=== PATIENT | male | born 1945 | race Caucasian/White ===

== ENCOUNTER 2017-11-22 06:54 | Inpatient (IN) | payer MEDICARE ==
[~2017-11-22] VITALS: Ht 190.5 cm; Wt 100.5 kg
[~2017-11-22 06:54] MED LIST: ACET325 PO; ACETAMINOPHEN500 MG PO; ALBU90OI61 INH; ALBUIS INH; AMIO200 PO; AMOCLA875 PO; ASPI325EC PO; ASPI81CH PO; ATOR40TA PO; Albuterol2.5 MG/0.5 INH; Amiodarone HCl200 MG PO; Aspir 8181 MG PO; Aspir-Trin325 MG PO; B Complex #11 EACH PO; BENZ100A PO; Bactrim 400-801 EACH PO; CALCA500CH PO; CEFU500T30 PO; CENTRUM SILVER1 EAC2 PO; CEPH500 PO; CETI5 PO; CLOP75 PO; Caltrate-600 W1 EACH PO; Colace100 MG PO; DICL75ER PO; DILT120ER PO; DRON400T PO; ELIQUIS5 MG PO; ERGO400 PO; FISH1000 PO; FLUSAL2505 INH; FLUT1DIS8 INH; FURO20 PO; FURO40 PO; Flomax0.4 MG PO; GUAI600T33 PO; HYDR1TAB94 PO; IBUP800; Icaps Plus1 EACH PO; Isosorbide Mono30 MG PO; LAVAP17G PO; METO25 PO; MULVITMIND PO; MUPI2TC TOP; Mucinex1200 MG PO; NEBI10 PO; NEBI5 PO; NITR.4SL SL; OXYACE7.5T PO; Ocuvite Preser1 EACH PO; POTCHL10ER PO; PRAV20 PO; PRED10; PRED10 PO; Prilosec20 MG PO; SENN187 PO; SPIR25 PO; SULTRIDS PO; Super B Comple150 MG PO; TIOT18 INH; TRAZ50 PO; Vitamin D2000 UNIT PO; ZINCODVICR TOP; Zithromax250 MG PO; [UNRECOGNIZED DRUG - REMARK]
[2017-11-22 07:17] LABS: PCO2 Arterial 45.3 mmHg (35-45); PO2 Arterial 70.5 mmHg (80-100); pH Blood Arterial 7.42 (7.35-7.45)
[2017-11-22 07:28] LABS: BASOPHILS ABSOLUTE AUTO 0.02 K/mm3 (0.00-0.23); BASOPHILS PERCENT AUTO 0 % (0-2); EOSINOPHILS PERCENT AUTO 2 % (0-6); Hematocrit 38.3 % (37.0-53.0); Hemoglobin 11.8 g/dL (13.5-17.5); IMMATURE GRAN ABSOLUTE AUTO 0.05 K/mm3 (0.00-0.10); IMMATURE GRAN PERCENT AUTO 1 % (0-1); LYMPHOCYTES ABSOLUTE AUTO 1.05 K/mm3 (0.84-5.20); LYMPHOCYTES PERCENT AUTO 17 % (21-46); MONOCYTES ABSOLUTE AUTO 0.42 K/mm3 (0.16-1.47); MONOCYTES PERCENT AUTO 7 % (4-13); Mean Corpuscular HGB Conc 30.8 g/dL (31.5-36.5); Mean Corpuscular Volume 91 fL (80-100); Mean Platelet Volume 8.7 fL (9.1-12.4); NEUTROPHILS ABSOLUTE AUTO 4.73 K/mm3 (1.96-9.15); NEUTROPHILS PERCENT AUTO 74 % (41-73); Platelet Count 143 K/mm3 (150-400); RDW Coefficient Variation 15.4 % (11.7-14.2); RDW Standard Deviation 50.7 fL (35.1-46.3); Red Blood Cell Count 4.21 M/mm3 (4.30-5.90); White Blood Cell Count 6.37 K/mm3 (4.00-11.30)
[2017-11-22 07:40] LABS: International Normalized Ratio 1.03; Prothrombin Time Results 10.7 Sec (9.7-11.5)
[2017-11-22 07:47] LABS: Alanine Aminotransfer (ALT/SGP 52 U/L (12-78); Albumin/Globulin Ratio 0.9 (0.8-1.8); Alk Phos 53 U/L (50-136); Anion Gap 4 mmol/L (6-16); Aspartate Aminotrans (AST/SGOT 49 U/L (12-37); Bilirubin, Total 0.6 mg/dL (0.1-1.0); Blood Urea Nitrogen 17 mg/dL (8-24); Bun/Creatinine Ratio 14.9 (12.0-20.0); CO2, Blood 30 mmol/L (21-32); Calcium, Blood 8.3 mg/dL (8.5-10.1); Chloride, Blood 97 mmol/L (98-108); Creatinine, Blood 1.14 mg/dL (0.60-1.20); Globulin, Blood 3.4 g/dL (2.2-4.0); Glomerular Filtration Rate >60 (60-); Glucose, Blood 96 mg/dL (70-99); Potassium, Blood 4.3 mmol/L (3.5-5.5); Sodium, Blood 131 mmol/L (136-145); Total Protein, Blood 6.4 g/dL (6.4-8.2); Troponin I <0.015 ng/mL (0.000-0.040)
[2017-11-22] MEDS ORDERED: TAMS.4ER PO (07:47)
[2017-11-22] MEDS ORDERED: POTA8 PO (07:47)
[2017-11-22] MEDS ORDERED: FURO40 PO (07:49)
[2017-11-23 05:18] LABS: BASOPHILS PERCENT AUTO 0 % (0-2); EOSINOPHILS PERCENT AUTO 0 % (0-6); Hematocrit 37.5 % (37.0-53.0); Hemoglobin 11.5 g/dL (13.5-17.5); IMMATURE GRAN ABSOLUTE AUTO 0.11 K/mm3 (0.00-0.10); IMMATURE GRAN PERCENT AUTO 1 % (0-1); LYMPHOCYTES ABSOLUTE AUTO 0.58 K/mm3 (0.84-5.20); LYMPHOCYTES PERCENT AUTO 7 % (21-46); MONOCYTES ABSOLUTE AUTO 0.24 K/mm3 (0.16-1.47); MONOCYTES PERCENT AUTO 3 % (4-13); Mean Corpuscular HGB 27.5 pg (26.0-34.0); Mean Corpuscular HGB Conc 30.7 g/dL (31.5-36.5); Mean Corpuscular Volume 90 fL (80-100); Mean Platelet Volume 8.8 fL (9.1-12.4); NEUTROPHILS ABSOLUTE AUTO 7.63 K/mm3 (1.96-9.15); NEUTROPHILS PERCENT AUTO 89 % (41-73); Platelet Count 131 K/mm3 (150-400); RDW Coefficient Variation 14.8 % (11.7-14.2); RDW Standard Deviation 48.5 fL (35.1-46.3); Red Blood Cell Count 4.18 M/mm3 (4.30-5.90); White Blood Cell Count 8.56 K/mm3 (4.00-11.30)
[2017-11-23 05:51] LABS: Albumin, Blood 2.6 g/dL (3.4-5.0); Anion Gap 8 mmol/L (6-16); Blood Urea Nitrogen 18 mg/dL (8-24); Bun/Creatinine Ratio 19.7 (12.0-20.0); CO2, Blood 26 mmol/L (21-32); Calcium, Blood 7.9 mg/dL (8.5-10.1); Chloride, Blood 99 mmol/L (98-108); Creatinine, Blood 0.92 mg/dL (0.60-1.20); Glomerular Filtration Rate >60 (60-); Glucose, Blood 145 mg/dL (70-99); Phosphorus, Blood 4.1 mg/dL (2.5-4.9); Potassium, Blood 4.7 mmol/L (3.5-5.5); Sodium, Blood 133 mmol/L (136-145)
[2017-11-24 06:35] LABS: BASOPHILS ABSOLUTE AUTO 0.02 K/mm3 (0.00-0.23); BASOPHILS PERCENT AUTO 0 % (0-2); EOSINOPHILS PERCENT AUTO 0 % (0-6); Hematocrit 39.2 % (37.0-53.0); Hemoglobin 12.3 g/dL (13.5-17.5); IMMATURE GRAN ABSOLUTE AUTO 0.09 K/mm3 (0.00-0.10); IMMATURE GRAN PERCENT AUTO 1 % (0-1); LYMPHOCYTES ABSOLUTE AUTO 0.57 K/mm3 (0.84-5.20); LYMPHOCYTES PERCENT AUTO 4 % (21-46); MONOCYTES ABSOLUTE AUTO 0.36 K/mm3 (0.16-1.47); MONOCYTES PERCENT AUTO 3 % (4-13); Mean Corpuscular HGB 28.1 pg (26.0-34.0); Mean Corpuscular HGB Conc 31.4 g/dL (31.5-36.5); Mean Corpuscular Volume 90 fL (80-100); Mean Platelet Volume 8.9 fL (9.1-12.4); NEUTROPHILS ABSOLUTE AUTO 12.54 K/mm3 (1.96-9.15); NEUTROPHILS PERCENT AUTO 92 % (41-73); Platelet Count 147 K/mm3 (150-400); RDW Coefficient Variation 14.8 % (11.7-14.2); RDW Standard Deviation 48.4 fL (35.1-46.3); Red Blood Cell Count 4.37 M/mm3 (4.30-5.90); White Blood Cell Count 13.58 K/mm3 (4.00-11.30)
[2017-11-24 06:50] LABS: Anion Gap 7 mmol/L (6-16); Blood Urea Nitrogen 27 mg/dL (8-24); Bun/Creatinine Ratio 25.5 (12.0-20.0); CO2, Blood 28 mmol/L (21-32); Calcium, Blood 8.2 mg/dL (8.5-10.1); Chloride, Blood 99 mmol/L (98-108); Creatinine, Blood 1.06 mg/dL (0.60-1.20); Glomerular Filtration Rate >60 (60-); Glucose, Blood 154 mg/dL (70-99); Potassium, Blood 4.6 mmol/L (3.5-5.5); Sodium, Blood 134 mmol/L (136-145)
[2017-11-24] MEDS ORDERED: AZIT500 PO (11:03)
[2017-11-24] MEDS ORDERED: GUAI600T33 PO (11:04)
[2017-11-24] MEDS ORDERED: SACC250C PO (11:04)
[2017-11-24] MEDS ORDERED: CEFP200 PO (11:05)
[2017-11-24] MEDS ORDERED: PRED10 PO (11:06)
[2018-06-27] MEDS ORDERED: PRED10 PO (14:50)
[2018-06-30] MEDS ORDERED: AZIT250 PO (11:59)
[2018-06-30] MEDS ORDERED: CEFU500T30 PO (12:00)
== END 2017-11-24 12:10 | disposition home or self-care (01) | DRG 191 ==
LOC: ER 06:54 → MEDS 09:26 → ENPENDDIS 11-24 11:09 → MEDS 11-24 12:10
PROVIDERS: Emergency Medicine; Hospitalist
DX: J44.1 Chronic obstructive pulmonary disease with (acute) exacerbation (principal); J96.11 Chronic respiratory failure with hypoxia; E88.09 Other disorders of plasma-protein metabolism, not elsewhere classified; E87.1 Hypo-osmolality and hyponatremia; I48.0 Paroxysmal atrial fibrillation; Z99.81 Dependence on supplemental oxygen; I25.10 Atherosclerotic heart disease of native coronary artery without angina pectoris; D64.9 Anemia, unspecified; E78.5 Hyperlipidemia, unspecified; Z95.1 Presence of aortocoronary bypass graft; Z88.8 Allergy status to other drugs, medicaments and biological substances; Z87.891 Personal history of nicotine dependence; Z79.01 Long term (current) use of anticoagulants; Z79.82 Long term (current) use of aspirin; Z79.51 Long term (current) use of inhaled steroids; Z79.899 Other long term (current) drug therapy
CPT/HCPCS: 36415; 36600; 71045; 80048; 80053; 80069; 82803; 83605; 83880; 84484; 85025; 85610; 87040; 93005; 93010; 94010; 94640; 94644; 94664; 94667; 94760; 96361; 96365; 96368; 96375; 97161; 98960; 99285; G8978; G8979; G8980; J0456; J0696; J2930; J7030; J7050

== ENCOUNTER 2018-06-22 05:56 | Emergency (ER) | payer MEDICARE ==
[~2018-06-22] VITALS: Ht 190.5 cm; Wt 88.5 kg
[~2018-06-22 05:56] MED LIST changes: +AZIT500 PO; +CEFP200 PO; +POTA8 PO; +SACC250C PO; +TAMS.4ER PO
[2018-06-22 06:40] LABS: BASOPHILS ABSOLUTE AUTO 0.03 K/mm3 (0.00-0.23); BASOPHILS PERCENT AUTO 0 % (0-2); EOSINOPHILS ABSOLUTE AUTO 0.05 K/mm3 (0.00-0.68); EOSINOPHILS PERCENT AUTO 1 % (0-6); Hematocrit 37.6 % (37.0-53.0); Hemoglobin 11.6 g/dL (13.5-17.5); IMMATURE GRAN ABSOLUTE AUTO 0.08 K/mm3 (0.00-0.10); IMMATURE GRAN PERCENT AUTO 1 % (0-1); LYMPHOCYTES ABSOLUTE AUTO 1.82 K/mm3 (0.84-5.20); LYMPHOCYTES PERCENT AUTO 17 % (21-46); MONOCYTES ABSOLUTE AUTO 0.48 K/mm3 (0.16-1.47); MONOCYTES PERCENT AUTO 5 % (4-13); Mean Corpuscular HGB 27.2 pg (26.0-34.0); Mean Corpuscular HGB Conc 30.9 g/dL (31.5-36.5); Mean Corpuscular Volume 88 fL (80-100); Mean Platelet Volume 9.2 fL (9.1-12.4); NEUTROPHILS ABSOLUTE AUTO 8.11 K/mm3 (1.96-9.15); NEUTROPHILS PERCENT AUTO 77 % (41-73); Platelet Count 149 K/mm3 (150-400); RDW Coefficient Variation 15.9 % (11.7-14.2); RDW Standard Deviation 51.3 fL (35.1-46.3); Red Blood Cell Count 4.27 M/mm3 (4.30-5.90); White Blood Cell Count 10.57 K/mm3 (4.00-11.30)
[2018-06-22 06:53] LABS: Alanine Aminotransfer (ALT/SGP 32 U/L (12-78); Albumin, Blood 2.9 g/dL (3.4-5.0); Albumin/Globulin Ratio 0.8 (0.8-1.8); Alk Phos 57 U/L (50-136); Anion Gap 7 mmol/L (6-16); Aspartate Aminotrans (AST/SGOT 37 U/L (12-37); Bilirubin, Total 1.4 mg/dL (0.1-1.0); Blood Urea Nitrogen 28 mg/dL (8-24); Bun/Creatinine Ratio 18.3 (12.0-20.0); CO2, Blood 28 mmol/L (21-32); Calcium, Blood 8.4 mg/dL (8.5-10.1); Chloride, Blood 99 mmol/L (98-108); Creatinine, Blood 1.53 mg/dL (0.60-1.20); Globulin, Blood 3.8 g/dL (2.2-4.0); Glomerular Filtration Rate 47 (60-); Glucose, Blood 93 mg/dL (70-99); Potassium, Blood 4.2 mmol/L (3.5-5.5); Sodium, Blood 134 mmol/L (136-145); Total Protein, Blood 6.7 g/dL (6.4-8.2); Troponin I <0.015 ng/mL (0.000-0.040)
[2018-06-22] MEDS ORDERED: Zithromax250 MG PO (08:52)
[2018-06-22] MEDS ORDERED: Zofran Odt4 MG SL (08:53)
[2018-06-22] MEDS ORDERED: Norco 5-325 Ta1 EACH PO (08:53)
[2018-06-27] MEDS ORDERED: PRED10 PO (14:50)
== END 2018-06-22 09:55 | disposition home or self-care (01) ==
LOC: ER 05:56
PROVIDERS: Emergency Medicine
DX: K57.32 Diverticulitis of large intestine without perforation or abscess without bleeding (principal); J44.0 Chronic obstructive pulmonary disease with (acute) lower respiratory infection; J18.9 Pneumonia, unspecified organism; I50.9 Heart failure, unspecified; Z88.8 Allergy status to other drugs, medicaments and biological substances; Z88.1 Allergy status to other antibiotic agents; Z79.82 Long term (current) use of aspirin; Z79.52 Long term (current) use of systemic steroids; Z79.01 Long term (current) use of anticoagulants; Z79.51 Long term (current) use of inhaled steroids; Z87.891 Personal history of nicotine dependence
CPT/HCPCS: 71046; 74176; 80053; 83690; 84484; 85025; 93005; 93010; 96361; 96365; 96375; 99285-25; J0456; J0696; J7030; J7050

== ENCOUNTER 2019-10-11 08:00 | Inpatient (IN) | payer MEDICARE ==
[~2019-10-11] VITALS: Ht 188 cm; Wt 105.6 kg
[~2019-10-11 08:00] MED LIST changes: +AZIT250 PO; +Norco 5-325 Ta1 EACH PO; +Zofran Odt4 MG SL
[2019-10-11 08:36] LABS: BASOPHILS ABSOLUTE AUTO 0.04 K/mm3 (0.00-0.23); BASOPHILS PERCENT AUTO 1 % (0-2); EOSINOPHILS ABSOLUTE AUTO 0.09 K/mm3 (0.00-0.68); EOSINOPHILS PERCENT AUTO 1 % (0-6); Hematocrit 32.8 % (37.0-53.0); IMMATURE GRAN ABSOLUTE AUTO 0.06 K/mm3 (0.00-0.10); IMMATURE GRAN PERCENT AUTO 1 % (0-1); LYMPHOCYTES ABSOLUTE AUTO 1.34 K/mm3 (0.84-5.20); LYMPHOCYTES PERCENT AUTO 19 % (21-46); MONOCYTES PERCENT AUTO 10 % (4-13); Mean Corpuscular HGB 29.7 pg (26.0-34.0); Mean Corpuscular HGB Conc 30.5 g/dL (31.5-36.5); Mean Corpuscular Volume 97 fL (80-100); Mean Platelet Volume 8.9 fL (9.1-12.4); NEUTROPHILS PERCENT AUTO 69 % (41-73); Platelet Count 179 K/mm3 (150-400); RDW Coefficient Variation 13.7 % (11.7-14.2); RDW Standard Deviation 48.6 fL (35.1-46.3); Red Blood Cell Count 3.37 M/mm3 (4.30-5.90); White Blood Cell Count 7.13 K/mm3 (4.00-11.30)
[2019-10-11 09:02] LABS: Alanine Aminotransfer (ALT/SGP 22 U/L (12-78); Albumin, Blood 3.2 g/dL (3.4-5.0); Albumin/Globulin Ratio 0.8 (0.8-1.8); Alk Phos 68 U/L (50-136); Anion Gap 5 mmol/L (6-16); Aspartate Aminotrans (AST/SGOT 26 U/L (12-37); Bilirubin, Total 0.5 mg/dL (0.1-1.0); Blood Urea Nitrogen 32 mg/dL (8-24); Bun/Creatinine Ratio 19.5 (12.0-20.0); CO2, Blood 28 mmol/L (21-32); Calcium, Blood 8.7 mg/dL (8.5-10.1); Chloride, Blood 110 mmol/L (98-108); Creatinine, Blood 1.64 mg/dL (0.60-1.20); Globulin, Blood 3.8 g/dL (2.2-4.0); Glomerular Filtration Rate 44 (60-); Glucose, Blood 101 mg/dL (70-99); Potassium, Blood 4.7 mmol/L (3.5-5.5); Sodium, Blood 143 mmol/L (136-145); Troponin I <0.015 ng/mL (0.000-0.040)
[2019-10-11] MEDS ORDERED: Amiodarone HCl200 MG PO (11:59)
[2019-10-11] MEDS ORDERED: FLUTICASONE-SA1 EAC5 INH (11:59)
[2019-10-11] MEDS ORDERED: ATOR40TA PO (12:00)
[2019-10-11] MEDS ORDERED: ISOSORBIDE MONO30 MG PO (12:01)
--- NOTE | 2019-10-11 14:15 | NUR ---
ER ADMIT- PT ARRIVED TO ROOM 333 VIA GURNEY FROM ED AT 1335. PT A/OX4, SLIGHTLY FORGETFUL, DAUGHTERS AT BEDSIDE. PT DENIES ANY PAIN AT THIS TIME. LS RHONCHI T/O WITH MOIST OCC PRODUCTIVE COUGH WITH THICK WHITE SPUTUM, PT ON 3L N/C. PT REPORTS HE WEARS 02 AT 3L AT HS AND PRN. SOB WITH EXERTION. PT REPORTS HE IS UNABLE TO LIE FLAT. PT DENIES ANY OTHER COMPLAINTS. PT ORIENTED TO ROOM AND CALL SYSTEM, CALL LIGHT IN REACH.
--- NOTE | 2019-10-11 18:16 | NUR ---
SHIFT SUMMARY- PT A NEW ER ADMIT THIS SHIFT. PT A/OX4 BUT FORGETUL. PT INDEP UP TO THE BATHROOM. LS WITH RHONCHI T/O, PRODUCTIVE COUGH WITH THICK WHITE SPUTUM, SAMPLE SENT TO LAB. RESP PCR COMPLETED. PT ON 3L N/C WHICH HE WEARS AT NIGHT AND PRN AT HOME. PT NEEDS TO BE REMINDED TO WEAR OXYGEN WHEN GETTING UP TO THE RESTROOM. NO OTHER ACUTE CHANGES SINCE ARRIVAL TO FLOOR.
[2019-10-11 19:11] LABS: Adenovirus Not Detected (NOT DETECT); Bordetella pertussis Not Detected (NOT DETECT); Chlamydophila pneumoniae Not Detected (NOT DETECT); Coronavirus 229E Not Detected (NOT DETECT); Coronavirus HKU1 Not Detected (NOT DETECT); Coronavirus NL63 Not Detected (NOT DETECT); Coronavirus OC43 Not Detected (NOT DETECT); Human Metapneumovirus Not Detected (NOT DETECT); Human Rhinovirus/Enterovirus Not Detected (NOT DETECT); Influenza A Not Detected (NOT DETECT); Influenza A/2009-H1 Not Detected (NOT DETECT); Influenza A/H1 Not Detected (NOT DETECT); Influenza A/H3 Not Detected (NOT DETECT); Influenza B Not Detected (NOT DETECT); Mycoplasma pneumoniae Not Detected (NOT DETECT); Parainfluenza Virus 1 Not Detected (NOT DETECT); Parainfluenza Virus 2 Not Detected (NOT DETECT); Parainfluenza Virus 3 Not Detected (NOT DETECT); Parainfluenza Virus 4 Not Detected (NOT DETECT); Respiratory Syncytial Virus Not Detected (NOT DETECT)
--- NOTE | 2019-10-11 19:59 | NUR ---
SPOKE TO CASSIDY CHURCHILL REGARDING PATIENT "FEELING FULL" AFTER HIS NGT WAS CLAMPED OFF EARLIER IN THE DAY. SHE OKAYED TO PLACE THE PATIENT BACK ONTO LOW-INTERMITTENT SUCTION AND THIS CHANGE WAS MADE.
--- NOTE | 2019-10-11 21:52 | NUR ---
SPOKE TO SHIVANI CHURCHILL REGARDING PT SOUNDING WET IN THE LUNGS, COARSE EXP WHEEZES T/O; CALLED RT FOR BREATING TX WHO SAID HE SOUNDS WORSE THAN HIS PRIOR ASSESSMENT; RECVD RX FOR IV LASIX PER EMAR
--- NOTE | 2019-10-12 04:59 | NUR ---
SPOKE TO DR MENDOZA REGARDING PT ELEVATED BP 179/82, OTHERWISE ASYMPTOMATIC, NO PRN AVAILABLE. RECVD RX FOR PRN HYDRALIZINE FOR SBP<160.
[2019-10-12 05:21] LABS: BASOPHILS ABSOLUTE AUTO 0.03 K/mm3 (0.00-0.23); BASOPHILS PERCENT AUTO 0 % (0-2); EOSINOPHILS PERCENT AUTO 0 % (0-6); Hematocrit 33.1 % (37.0-53.0); Hemoglobin 10.3 g/dL (13.5-17.5); IMMATURE GRAN ABSOLUTE AUTO 0.28 K/mm3 (0.00-0.10); IMMATURE GRAN PERCENT AUTO 2 % (0-1); LYMPHOCYTES PERCENT AUTO 7 % (21-46); MONOCYTES ABSOLUTE AUTO 0.28 K/mm3 (0.16-1.47); MONOCYTES PERCENT AUTO 2 % (4-13); Mean Corpuscular HGB 29.7 pg (26.0-34.0); Mean Corpuscular HGB Conc 31.1 g/dL (31.5-36.5); Mean Corpuscular Volume 95 fL (80-100); Mean Platelet Volume 9.2 fL (9.1-12.4); NEUTROPHILS ABSOLUTE AUTO 10.09 K/mm3 (1.96-9.15); NEUTROPHILS PERCENT AUTO 88 % (41-73); Platelet Count 179 K/mm3 (150-400); RDW Coefficient Variation 13.5 % (11.7-14.2); RDW Standard Deviation 47.4 fL (35.1-46.3); Red Blood Cell Count 3.47 M/mm3 (4.30-5.90); White Blood Cell Count 11.48 K/mm3 (4.00-11.30)
[2019-10-12 05:48] LABS: Albumin/Globulin Ratio 0.7 (0.8-1.8); Bilirubin, Total 0.6 mg/dL (0.1-1.0); Bun/Creatinine Ratio 24.1 (12.0-20.0); Calcium, Blood 8.9 mg/dL (8.5-10.1); Creatinine, Blood 1.37 mg/dL (0.60-1.20); Globulin, Blood 4.2 g/dL (2.2-4.0); Potassium, Blood 4.6 mmol/L (3.5-5.5); Total Protein, Blood 7.2 g/dL (6.4-8.2)
--- NOTE | 2019-10-12 06:34 | NUR ---
PT SLEPT INTERMITTENTLY THROUGH THE NIGHT. PT WAS SEEN BY RT AND HIS COUGH AND LUNG SOUNDS WERE GROWING WETTER. STOPPED IVF FOR A WHILE AND PT RECEIVED BREATHING TX. PT HAD SOME ELEVEATE BP THIS MORNING AND RECEIVED IV HYDRALIZINE PER EMAR. HE REMAINS PLEASANT AND COOPERATIVE WITH CARE. HE MAY BENEFIT FROM A COUGH SYRUP AND/OR TESSALON PERRLE FOR PERIODS OF REST; HIS COUGH EXHAUSTS HIM.
--- NOTE | 2019-10-12 12:46 | NUR ---
DR BOLTON IN TO SEE PT.
--- NOTE | 2019-10-12 16:11 | NUR ---
ECHO IN PROGRESS.
--- NOTE | 2019-10-12 16:46 | NUR ---
ECHOCARDIOGRAM COMPLETE
--- NOTE | 2019-10-12 16:57 | NUR ---
SHIFT SUMMARY- PT A/OX4. PT DENIES ANY PAIN T/O THE DAY. PT INDEP UP TO BATHROOM. PT WAS ABLE TO AMBULATE SHORT DISTANCES IN THE HALLWAY TODAY. LS COARSE WITH EXP WHEEZES, PT DID SAT 96% ON RA BUT HAS BEEN WEARING 02 AT 2L, TITRATED DOWN FROM 3L. PT WEARS 02 AT HS AT HOME AND PRN. HARSH MOIST PRODUCTIVE COUGH OF THICK WHITE SPUTUM. SOB WITH EXERTION. BREATHING TX NOW SCHEDULED Q4H. NO OTHER ACUTE CHANGES THIS SHIFT.
--- NOTE | 2019-10-12 23:07 | NUR ---
SPOKE TO SHIVANI CHURCHILL PLANNER/SCHEDULER REGARDING PT COUGHING AND HACKING EPISODES. NO NEW ORDERS AT THIS TIME. WILL CONTINUWE TO MONITOR
--- NOTE | 2019-10-13 08:00 | NUR ---
PT PLEASANT TALKATIVE. A/O. [place]. DENIES PAIN. H/R REG, NO MURMER NOTED. OLD SCAR MIDLINE CHEST. PRIOR CABG. NO TELE. LUNGS COARSE T/O. ON 2L O2. PT STATES NO DAY USE AT HOME. RESP EASY UNLABORED EXCEPT WHEN COUGHING. PT STATES ONLY A LITTLE SPUTUM PRODUCED. BT X4 LAST BM YEST PER PT. VOIDS BATHROOM. INDEPENDANT IN ROOM. BED IN LOW POSITION, CALL LITE IN REACH, CALLS APPROP
--- NOTE | 2019-10-13 11:45 | NUR ---
PT UP WALKING HALLS. DENIES SOB.
--- NOTE | 2019-10-13 17:39 | NUR ---
PT QUITE PLEASANT TODAY. SON AND OTHER FAMILY IN TODAY. HAS BEEN UP IN HALLS TODAY WALKING. COUGHING LESS. TALKING MUCH. NO OTHER CONCERNS AT THIS TIME. BED IN LOW POSITION,C A LL LITE IN REACH, CALLS APROP
[2019-10-14 05:05] LABS: BASOPHILS ABSOLUTE AUTO 0.03 K/mm3 (0.00-0.23); BASOPHILS PERCENT AUTO 0 % (0-2); EOSINOPHILS PERCENT AUTO 0 % (0-6); Hematocrit 31.6 % (37.0-53.0); Hemoglobin 9.8 g/dL (13.5-17.5); IMMATURE GRAN ABSOLUTE AUTO 0.44 K/mm3 (0.00-0.10); IMMATURE GRAN PERCENT AUTO 3 % (0-1); LYMPHOCYTES ABSOLUTE AUTO 0.59 K/mm3 (0.84-5.20); LYMPHOCYTES PERCENT AUTO 4 % (21-46); MONOCYTES ABSOLUTE AUTO 0.34 K/mm3 (0.16-1.47); MONOCYTES PERCENT AUTO 2 % (4-13); Mean Corpuscular HGB 29.6 pg (26.0-34.0); Mean Corpuscular Volume 96 fL (80-100); Mean Platelet Volume 9.2 fL (9.1-12.4); NEUTROPHILS ABSOLUTE AUTO 14.49 K/mm3 (1.96-9.15); NEUTROPHILS PERCENT AUTO 91 % (41-73); Platelet Count 208 K/mm3 (150-400); RDW Coefficient Variation 13.7 % (11.7-14.2); RDW Standard Deviation 47.8 fL (35.1-46.3); Red Blood Cell Count 3.31 M/mm3 (4.30-5.90); White Blood Cell Count 15.89 K/mm3 (4.00-11.30)
[2019-10-14 05:28] LABS: Bun/Creatinine Ratio 27.5 (12.0-20.0); Calcium, Blood 8.5 mg/dL (8.5-10.1); Creatinine, Blood 1.78 mg/dL (0.60-1.20)
--- NOTE | 2019-10-14 05:48 | NUR ---
SHIFT SUMMARY PT HAS NO NEW ISSUES NOTED. PT HAS BEEN SLEEPING OFF AND ON. PT CONTINUES TO HAVE A WET COUGH NOTED. PT HAS BEEN WALKING AROUND UNIT WITH OUT ISSUE. PT CURRENTLY AWAKE AND IN NO DISTRESS. CALL LIGHT IN REACH.
--- NOTE | 2019-10-14 16:47 | NUR ---
PT AOX4 AND COOPERATIVE OF CARE. PT HAS BEEN UP INDEPENDENTLY AND EVEN WENT FOR A WALK DOWN THE CIFUENTES. PT HAS COURSE LS THROUGHOUT. PT HAD HIS COUGH INCREASE AND THIS WAS TREATED PER EMAR. COUGH HAS IMPROVED PER PT. PT RESTING IN BED AT THIS TIME CALLS APPROPRIATELY. NO DISTRESS NOTED WILL CONTINUE TO MONITOR.
[2019-10-15 05:18] LABS: BASOPHILS ABSOLUTE AUTO 0.05 K/mm3 (0.00-0.23); BASOPHILS PERCENT AUTO 0 % (0-2); EOSINOPHILS PERCENT AUTO 0 % (0-6); Hematocrit 32.7 % (37.0-53.0); Hemoglobin 10.2 g/dL (13.5-17.5); IMMATURE GRAN ABSOLUTE AUTO 0.61 K/mm3 (0.00-0.10); IMMATURE GRAN PERCENT AUTO 4 % (0-1); LYMPHOCYTES ABSOLUTE AUTO 0.57 K/mm3 (0.84-5.20); LYMPHOCYTES PERCENT AUTO 4 % (21-46); MONOCYTES ABSOLUTE AUTO 0.45 K/mm3 (0.16-1.47); MONOCYTES PERCENT AUTO 3 % (4-13); Mean Corpuscular HGB 29.7 pg (26.0-34.0); Mean Corpuscular HGB Conc 31.2 g/dL (31.5-36.5); Mean Corpuscular Volume 95 fL (80-100); Mean Platelet Volume 9.2 fL (9.1-12.4); NEUTROPHILS ABSOLUTE AUTO 14.13 K/mm3 (1.96-9.15); NEUTROPHILS PERCENT AUTO 89 % (41-73); Platelet Count 230 K/mm3 (150-400); RDW Coefficient Variation 13.7 % (11.7-14.2); RDW Standard Deviation 47.3 fL (35.1-46.3); Red Blood Cell Count 3.44 M/mm3 (4.30-5.90); White Blood Cell Count 15.81 K/mm3 (4.00-11.30)
[2019-10-15 05:36] LABS: Bun/Creatinine Ratio 29.2 (12.0-20.0); Calcium, Blood 8.5 mg/dL (8.5-10.1); Creatinine, Blood 1.85 mg/dL (0.60-1.20); Potassium, Blood 4.9 mmol/L (3.5-5.5)
--- NOTE | 2019-10-15 07:29 | NUR ---
SHIFT SUMMARY NO NEW ISSUES NOTED PT SLEPT WELL T/O SHIFT. PT WOKE UP EARLY AND REQUESTED COFFEE. PT AWAKE WITH CALL LIGHT IN REACH.
--- NOTE | 2019-10-15 17:06 | NUR ---
PT AOX4 AND COOPERATIVE OF CARE. LSC THROUGHOUT PT CONTINUES ON 2L OF O2. PT UP IN ROOM INDEPENDENTLY. PT HAS AMBULATED X2 DOWN THE CIFUENTES AND BACK ON ROOM AIR. RT CHECKED O2 LEVEL WHILE PT DID THIS AND IT GETS DOWN TO 81%. PT DENIES PAIN AT THIS TIME.COUGH TREATED X1 PER EMAR. WILL CONTINUE TO MONITOR.
--- NOTE | 2019-10-16 05:04 | NUR ---
SHIFT SUMMARY PT HAD SOME HTN NOTED. PT CONTINUES TO COUGH. PT RESPONDS WELL TO COUGH MEDS AND SLEPT WELL. PT WALKED UNIT WITH OUT ISSUE. PT CURRENTLY AWAKE IN NO DISTRESS. CALL LIGHT IN REACH.
[2019-10-16 05:36] LABS: BASOPHILS ABSOLUTE AUTO 0.05 K/mm3 (0.00-0.23); BASOPHILS PERCENT AUTO 0 % (0-2); EOSINOPHILS PERCENT AUTO 0 % (0-6); Hematocrit 31.9 % (37.0-53.0); Hemoglobin 10.1 g/dL (13.5-17.5); IMMATURE GRAN PERCENT AUTO 4 % (0-1); LYMPHOCYTES ABSOLUTE AUTO 0.54 K/mm3 (0.84-5.20); LYMPHOCYTES PERCENT AUTO 4 % (21-46); MONOCYTES ABSOLUTE AUTO 0.42 K/mm3 (0.16-1.47); MONOCYTES PERCENT AUTO 3 % (4-13); Mean Corpuscular HGB 29.8 pg (26.0-34.0); Mean Corpuscular HGB Conc 31.7 g/dL (31.5-36.5); Mean Corpuscular Volume 94 fL (80-100); NEUTROPHILS ABSOLUTE AUTO 13.49 K/mm3 (1.96-9.15); NEUTROPHILS PERCENT AUTO 89 % (41-73); Platelet Count 204 K/mm3 (150-400); RDW Coefficient Variation 13.6 % (11.7-14.2); RDW Standard Deviation 46.8 fL (35.1-46.3); Red Blood Cell Count 3.39 M/mm3 (4.30-5.90)
[2019-10-16 06:04] LABS: Bun/Creatinine Ratio 34.4 (12.0-20.0); Calcium, Blood 8.5 mg/dL (8.5-10.1); Creatinine, Blood 1.51 mg/dL (0.60-1.20); Potassium, Blood 5.2 mmol/L (3.5-5.5)
--- NOTE | 2019-10-16 17:11 | NUR ---
Inital spiritual care note: Mr. Gagnon is quite charming and denies fears/concerns. He feels supported and loved by his 3 adult children. He made little jokes and was engaged/personable. Denied needs and is non-congregation. He feels like he is getting better. Provided encouragement. I will remain available.
--- NOTE | 2019-10-16 17:32 | NUR ---
PT AOX4 AND COOPERATIVE OF CARE. PT CONTINUES TO DO WELL AND HAS BEEN DOWN THE CIFUENTES AMBULATING X3 TODAY. PT STATES HE IS FEELING BETTER, BUT STILL NOT QUITE TO HIS BASELINE PER PT. NO DISTESS AT THIS TIME COUGH TREATED PER EMAR NO PAIN REPORTED.
--- NOTE | 2019-10-17 00:21 | NUR ---
UP AMBULATING POST HS, TOLERATED MEDS WELL. ALERT AND ORIENTED. CALL LIGHT IN REACH. VOICED HE INTENDED TO "GET SOME SLEEP". WILL CONTINUE TO MONITOR.
[2019-10-17 06:11] LABS: Calcium, Blood 8.5 mg/dL (8.5-10.1); Creatinine, Blood 1.5 mg/dL (0.60-1.20); Potassium, Blood 5.4 mmol/L (3.5-5.5)
--- NOTE | 2019-10-17 14:15 | NUR ---
PT gave permission to give care on 10/17/2019 at 1410. At first PT bryant said "No". Then PT laughed saying, "Yes, of course you can".
--- NOTE | 2019-10-17 15:32 | NUR ---
SUMMARY PT IS A/O X4, PLEASANT AFFECT. HE HAS BEEN UP IND AMBULATING TO BR & IN HALLWAY, GAIT STEADY. HE STATE SOB w EXERTION IMPROVING. DX PNEUM. IV ANTIBX CONTINUE. LS ARE COARSE w EXP WHEEZES. O2 @ 2L, BIOX 99%, TITRATED TO ROOM AIR DURING DAYTIME. DR REGALADO IN TO SEE HIM THIS AM STATE NOT READY TO GO HOME @ THIS TIME, WILL REASSESS TOMORROW. VSS.
[2019-10-18 05:47] LABS: BASOPHILS ABSOLUTE AUTO 0.05 K/mm3 (0.00-0.23); BASOPHILS PERCENT AUTO 0 % (0-2); EOSINOPHILS PERCENT AUTO 0 % (0-6); Hematocrit 30.2 % (37.0-53.0); Hemoglobin 9.5 g/dL (13.5-17.5); IMMATURE GRAN ABSOLUTE AUTO 0.78 K/mm3 (0.00-0.10); IMMATURE GRAN PERCENT AUTO 5 % (0-1); LYMPHOCYTES ABSOLUTE AUTO 0.71 K/mm3 (0.84-5.20); LYMPHOCYTES PERCENT AUTO 5 % (21-46); MONOCYTES ABSOLUTE AUTO 0.69 K/mm3 (0.16-1.47); MONOCYTES PERCENT AUTO 4 % (4-13); Mean Corpuscular HGB 29.5 pg (26.0-34.0); Mean Corpuscular HGB Conc 31.5 g/dL (31.5-36.5); Mean Corpuscular Volume 94 fL (80-100); Mean Platelet Volume 9.2 fL (9.1-12.4); NEUTROPHILS ABSOLUTE AUTO 13.38 K/mm3 (1.96-9.15); NEUTROPHILS PERCENT AUTO 86 % (41-73); NRBC ABSOLUTE 0.02 K/mm3 (0.00-0.02); NRBC Auto 0.1 /100 WBC (0.0-0.2); Platelet Count 212 K/mm3 (150-400); RDW Coefficient Variation 13.7 % (11.7-14.2); RDW Standard Deviation 46.5 fL (35.1-46.3); Red Blood Cell Count 3.22 M/mm3 (4.30-5.90); White Blood Cell Count 15.61 K/mm3 (4.00-11.30)
[2019-10-18 06:05] LABS: Calcium, Blood 8.3 mg/dL (8.5-10.1); Creatinine, Blood 1.56 mg/dL (0.60-1.20); Potassium, Blood 5.6 mmol/L (3.5-5.5)
--- NOTE | 2019-10-18 16:33 | NUR ---
SHIFT SUMMARY PT DENIES PAIN THROUGHOUT SHIFT. PT IND IN ROOM. AMBULATED HALLWAYS PERIODICALLY. NO CHANGES IN ASSESSMENT AT THIS TIME. VSS. WILL CONTINUE TO MONITOR UNTIL TURNOVER IS COMPLETE.
--- NOTE | 2019-10-18 22:50 | NUR ---
10/18/19 2250 RESP.CARE AND STARTING SLEEP STUDY. RT INFORMED PT ON REQUIREMENTS FOR STUDY. 02 AT 2LPM VIA N/C.
[2019-10-19 05:18] LABS: PCO2 Arterial 44 mmHg (35-45); PO2 Arterial 88.5 mmHg (80-100); pH Blood Arterial 7.43 (7.35-7.45)
--- NOTE | 2019-10-19 05:18 | NUR ---
10/19/19 0515 RESP. CARE AWAKENED PT TO DISCONNECT MONITOR FOR SLEEP STUDY. PT HUNGRY AND WANTING COFFE AND CRACKERS. NO OTHER COMPLAINTS. SLEPT ON AND OFF THIS SHIFT. VITALS STABLE.
[2019-10-19 05:51] LABS: Hematocrit 32.7 % (37.0-53.0); Hemoglobin 10.3 g/dL (13.5-17.5); Mean Corpuscular HGB 29.7 pg (26.0-34.0); Mean Corpuscular HGB Conc 31.5 g/dL (31.5-36.5); Mean Corpuscular Volume 94 fL (80-100); Mean Platelet Volume 9.1 fL (9.1-12.4); Platelet Count 218 K/mm3 (150-400); RDW Coefficient Variation 13.9 % (11.7-14.2); RDW Standard Deviation 47.2 fL (35.1-46.3); Red Blood Cell Count 3.47 M/mm3 (4.30-5.90); White Blood Cell Count 16.13 K/mm3 (4.00-11.30)
[2019-10-19 06:09] LABS: Bun/Creatinine Ratio 30.9 (12.0-20.0); Calcium, Blood 8.5 mg/dL (8.5-10.1); Creatinine, Blood 1.75 mg/dL (0.60-1.20); Potassium, Blood 5.5 mmol/L (3.5-5.5)
[2019-10-19 06:25] LABS: BAND PERCENT MAN 3 % (0-8); BASOPHILS PERCENT MAN 0 % (0-2); EOSINOPHILS PERCENT MAN 0 % (0-6); LYMPHOCYTES ABSOLUTE MAN 1.29 K/mm3 (0.84-5.20); LYMPHOCYTES PERCENT MAN 8 % (21-46); METAMYELOCYTE ABSOLUTE MAN 0.16 K/mm3 (0.00-0.00); METAMYELOCYTE PERCENT MAN 1 % (0-0); MONOCYTES ABSOLUTE MAN 0.48 K/mm3 (0.16-1.47); MONOCYTES PERCENT MAN 3 % (4-13); MYELOCYTE ABSOLUTE MAN 0.16 K/mm3 (0.00-0.00); MYELOCYTE PERCENT MAN 1 % (0-0); NEUTROPHILS ABSOLUTE MAN 14.03 K/mm3 (1.96-9.15); SEG NEUTROPHILS PERCENT MAN 84 % (41-73); TOTAL CELLS COUNTED 100
--- NOTE | 2019-10-19 07:42 | NUR ---
ASSUMED CARE OF PT- BEDSIDE REPORT COMPLETED WITH NIHGT RN JOSE. PT ALERT AND ORIENTED A LITTLE HARD OF HEARING. PT HAS REQUESTED THAT STAFF BE SURE TO WAKE HIM BEFORE TOUCHING HIM. HE STATED HE HAS AN EXAGERATED STARTLE RESPONSE, AND HE IS FEARFUL THAT HE MAY HIT SOMEONE WHEN THEY WAKE HIM. NOTE PLACED OUTSIDE THE PT ROOM. PER REPORT POSSIBLE DISCHARGE TODAY.
--- NOTE | 2019-10-19 20:10 | NUR ---
SHIFT SUMMARY- PT ALERT AND ORIENTED. PER DR FAUST PT TO DISCHARGE TOMORROW. PT HAS HAD NO C/O PAIN. PT ON 2L VIA NC AT NIGHT. PT HAS BEEN INDEPENDENT IN THE HALLS TODAY WITHOUT O2. PT HAS A HOME O2 CONCENTRATOR FOR NIGHT TIME O2. PT AWARE OF THE PLANS FOR DISCHARGE TOMORROW.
[2019-10-20 05:32] LABS: BASOPHILS ABSOLUTE AUTO 0.07 K/mm3 (0.00-0.23); BASOPHILS PERCENT AUTO 1 % (0-2); EOSINOPHILS PERCENT AUTO 0 % (0-6); Hematocrit 30.7 % (37.0-53.0); Hemoglobin 9.9 g/dL (13.5-17.5); IMMATURE GRAN ABSOLUTE AUTO 0.83 K/mm3 (0.00-0.10); IMMATURE GRAN PERCENT AUTO 6 % (0-1); LYMPHOCYTES ABSOLUTE AUTO 0.48 K/mm3 (0.84-5.20); LYMPHOCYTES PERCENT AUTO 3 % (21-46); MONOCYTES ABSOLUTE AUTO 0.53 K/mm3 (0.16-1.47); MONOCYTES PERCENT AUTO 4 % (4-13); Mean Corpuscular HGB Conc 32.2 g/dL (31.5-36.5); Mean Corpuscular Volume 93 fL (80-100); Mean Platelet Volume 9.1 fL (9.1-12.4); NEUTROPHILS PERCENT AUTO 86 % (41-73); NRBC ABSOLUTE 0.02 K/mm3 (0.00-0.02); NRBC Auto 0.1 /100 WBC (0.0-0.2); Platelet Count 213 K/mm3 (150-400); White Blood Cell Count 14.11 K/mm3 (4.00-11.30)
[2019-10-20 05:56] LABS: Albumin, Blood 2.6 g/dL (3.4-5.0); Albumin/Globulin Ratio 0.9 (0.8-1.8); Bilirubin, Total 0.5 mg/dL (0.1-1.0); Bun/Creatinine Ratio 33.1 (12.0-20.0); Calcium, Blood 8.3 mg/dL (8.5-10.1); Creatinine, Blood 1.72 mg/dL (0.60-1.20); Globulin, Blood 2.9 g/dL (2.2-4.0); Magnesium, Blood 2.1 mg/dL (1.6-2.4); Phosphorus, Blood 4.3 mg/dL (2.5-4.9); Potassium, Blood 5.4 mmol/L (3.5-5.5); Total Protein, Blood 5.5 g/dL (6.4-8.2)
--- NOTE | 2019-10-20 07:26 | NUR ---
ASSUMED CARE OF PT- BEDSIDE REPORT COMPLETED WITH NIGHT RN JOSE. PER REPORT PT WAS INDEPENDENT THROUGH THE NIGHT. PT ALERT AND ORIENTED AND IS HOPING TO GO HOME TODAY. PLAN IS FOR PT TO DISCHARGE HOME TODAY PER DR MARTI. PT HAS NO S&S OF DISTRESS OR PAIN AT THIS TIME WILL CTM.
--- NOTE | 2019-10-20 07:30 | NUR ---
10/20/19 0600 CHEERFUL THIS SHIFT WITHOUT COMPLAINTS. 02 AT 2LPM VIA N/C. VITALS STABLE. UNEVENTFUL NIGHT.
[2019-10-20] MEDS ORDERED: GUAI600T33 PO (11:49)
[2019-10-20] MEDS ORDERED: FAMO20 PO (11:49)
[2019-10-20] MEDS ORDERED: Duoneb 2.5-0.5 M3 ML INH (11:50)
[2019-10-20] MEDS ORDERED: Prednisone10 MG PO (11:51)
[2019-10-20] MEDS ORDERED: SENN187 PO (11:51)
--- NOTE | 2019-10-20 13:34 | NUR ---
DISCHARGE NOTE- PT WAS GIVEN VERBAL AND WRITTEN DISCHARGE INSTRUCTIONS AND ACKNOWLEDGED UNDERSTANDING OF THEM. PT IV WAS DC'D PRIOR TO DISCHARGE. PT AND FAMILY HAD NO FURTHER QUESTIONS AT THE TIME OF DISCHARGE, CONTACT INFO PROVIDED IN THE EVENT THAT QUESTIONS SHOULD ARRISE. PT WAS ESCORTED OUT VIA WC BY THE MORTGAGE LOAN INTERVIEWER.
== END 2019-10-20 12:22 | disposition home or self-care (01) | DRG 189 ==
LOC: ER 08:00 → MEDS 11:56
PROVIDERS: Family Medicine; Hospitalist; Internal Medicine Endocrinology, Diabetes & Metabolism; Physician Assistant; ADMIT Internal Medicine
DX: J96.21 Acute and chronic respiratory failure with hypoxia (principal); J44.1 Chronic obstructive pulmonary disease with (acute) exacerbation; J44.0 Chronic obstructive pulmonary disease with (acute) lower respiratory infection; E78.5 Hyperlipidemia, unspecified; E86.0 Dehydration; E87.5 Hyperkalemia; G25.2 Other specified forms of tremor; I10 Essential (primary) hypertension; I25.10 Atherosclerotic heart disease of native coronary artery without angina pectoris; I48.0 Paroxysmal atrial fibrillation; K21.9 Gastro-esophageal reflux disease without esophagitis; N18.3 Chronic kidney disease, stage 3 (moderate); N40.0 Benign prostatic hyperplasia without lower urinary tract symptoms; Z95.1 Presence of aortocoronary bypass graft; J20.8 Acute bronchitis due to other specified organisms; Z99.81 Dependence on supplemental oxygen; Z91.19 Patient's noncompliance with other medical treatment and regimen; Z79.01 Long term (current) use of anticoagulants; I12.9 Hypertensive chronic kidney disease with stage 1 through stage 4 chronic kidney disease, or unspecified chronic kidney disease; E87.6 Hypokalemia; D63.1 Anemia in chronic kidney disease
CPT/HCPCS: 0099U; 36415; 36600; 71045; 71046; 80048; 80053; 82803; 83735; 83880; 84100; 84484; 85025; 87070; 87077; 87185; 87205; 90670; 93005; 93010; 93306; 94640; 94664; 94667; 94760; 94762; 96374; 98960; 99285-25; J0360; J0456; J0696; J1940; J2920; J2930; J7030; J7050; J7512

== ENCOUNTER 2020-06-06 11:35 | Observation (INO) | payer MEDICARE ==
[~2020-06-06] VITALS: Ht 188 cm; Wt 109.9 kg
[~2020-06-06 11:35] MED LIST changes: -ELIQUIS5 MG PO; +FAMO20 PO; -METO25 PO; -POTA8 PO; +Prednisone10 MG PO; -TAMS.4ER PO
[2020-06-06 13:03] LABS: BASOPHILS ABSOLUTE AUTO 0.05 K/mm3 (0.00-0.23); BASOPHILS PERCENT AUTO 1 % (0-2); EOSINOPHILS ABSOLUTE AUTO 0.33 K/mm3 (0.00-0.68); EOSINOPHILS PERCENT AUTO 6 % (0-6); Hematocrit 34.5 % (37.0-53.0); IMMATURE GRAN ABSOLUTE AUTO 0.03 K/mm3 (0.00-0.10); IMMATURE GRAN PERCENT AUTO 1 % (0-1); LYMPHOCYTES ABSOLUTE AUTO 1.77 K/mm3 (0.84-5.20); LYMPHOCYTES PERCENT AUTO 31 % (21-46); MONOCYTES ABSOLUTE AUTO 0.36 K/mm3 (0.16-1.47); MONOCYTES PERCENT AUTO 6 % (4-13); Mean Corpuscular HGB 25.9 pg (26.0-34.0); Mean Corpuscular Volume 89 fL (80-100); Mean Platelet Volume 9.7 fL (9.1-12.4); NEUTROPHILS ABSOLUTE AUTO 3.27 K/mm3 (1.96-9.15); NEUTROPHILS PERCENT AUTO 56 % (41-73); Platelet Count 172 K/mm3 (150-400); RDW Coefficient Variation 17.3 % (11.7-14.2); Red Blood Cell Count 3.86 M/mm3 (4.30-5.90); White Blood Cell Count 5.81 K/mm3 (4.00-11.30)
[2020-06-06 13:25] LABS: Albumin, Blood 3.2 g/dL (3.4-5.0); Bun/Creatinine Ratio 14.8 (12.0-20.0); Calcium, Blood 8.7 mg/dL (8.5-10.1); Creatinine, Blood 1.89 mg/dL (0.60-1.20); Globulin, Blood 3.3 g/dL (2.2-4.0); Potassium, Blood 4.6 mmol/L (3.5-5.5); Total Protein, Blood 6.5 g/dL (6.4-8.2)
[2020-06-06 15:58] LABS: Troponin I 0.092 ng/mL (0.000-0.040)
[2020-06-06] MEDS ORDERED: FLUTICASONE-SA1 EA10 INH (16:50)
[2020-06-06] MEDS ORDERED: ATOR40TA PO (16:51)
[2020-06-06] MEDS ORDERED: Tessalon200 MG PO (16:52)
[2020-06-06] MEDS ORDERED: METO25 PO (16:53)
[2020-06-06] MEDS ORDERED: FURO40 PO (16:53)
[2020-06-06] MEDS ORDERED: TAMS.4ER PO (16:54)
[2020-06-06] MEDS ORDERED: POTA8 PO (16:54)
[2020-06-06] MEDS ORDERED: PACERONE100 M1 PO (16:54)
[2020-06-06] MEDS ORDERED: ISOSORBIDE MONO30 MG PO (16:54)
[2020-06-06] MEDS ORDERED: ALBU2.5V5 NEB (16:55)
[2020-06-06] MEDS ORDERED: ELIQUIS5 MG PO (16:55)
[2020-06-06 17:35] LABS: International Normalized Ratio 0.99; Prothrombin Time Results 10.6 Sec (9.7-11.5)
[2020-06-06] MEDS ORDERED: [UNRECOGNIZED DRUG - REMARK] PO (17:51)
[2020-06-06] MEDS ORDERED: [UNRECOGNIZED DRUG - OTHER] PO (17:51)
[2020-06-06 21:34] LABS: Troponin I 0.132 ng/mL (0.000-0.040)
--- NOTE | 2020-06-06 23:07 | NUR ---
2039 PT ADMITTED TO PCU 8 PER CART FROM ER; REPORT RECEIVED FROM DESTIN DOLL; PT ALERT AND ORIENTED X 4; PTS SON AT SIDE AND ALL PERSONAL VALUABLES SENT HOME WITH EDER; PT VOICED HE HAD TWO FALLS PAST TWO DAYS; PT NOTED HAVE BILATERAL VERY LONG TOE NAILS; PTS VOICED NO SHOWER IN OVER TWO WEEKS WITH DRY SCALLY SKIN NOTED ENTIRE BODY; TELEMETRY REFLECTS SINUS BRADYCARDIA PER YORDY--[employer].
--- NOTE | 2020-06-07 03:35 | NUR ---
SHIFT SUMMARY: 74 Y/O OBESE MALE RESTED COMFORTABLY IN BED; DENIES CHEST PAIN OR NAUSEA; HEPARIN INFUSING WITHOUTISSUE; NO ACTIVE BLEEDING NOTED; TELEMETRY REFLECTS SINUS BRADYCARDIA; PTS LAST PTT WAS 82 WITH NEXT BLOOD DRAW SCHEDULED FOR 0800 TODAY; BED LOW POSITION WITH CALL LIGHT AT SIDE.
[2020-06-07 04:20] LABS: BASOPHILS ABSOLUTE AUTO 0.05 K/mm3 (0.00-0.23); BASOPHILS PERCENT AUTO 1 % (0-2); EOSINOPHILS PERCENT AUTO 7 % (0-6); Hematocrit 34.9 % (37.0-53.0); Hemoglobin 10.3 g/dL (13.5-17.5); IMMATURE GRAN ABSOLUTE AUTO 0.02 K/mm3 (0.00-0.10); IMMATURE GRAN PERCENT AUTO 0 % (0-1); LYMPHOCYTES ABSOLUTE AUTO 1.47 K/mm3 (0.84-5.20); LYMPHOCYTES PERCENT AUTO 32 % (21-46); MONOCYTES ABSOLUTE AUTO 0.32 K/mm3 (0.16-1.47); MONOCYTES PERCENT AUTO 7 % (4-13); Mean Corpuscular HGB Conc 29.5 g/dL (31.5-36.5); Mean Corpuscular Volume 88 fL (80-100); Mean Platelet Volume 9.3 fL (9.1-12.4); NEUTROPHILS ABSOLUTE AUTO 2.44 K/mm3 (1.96-9.15); NEUTROPHILS PERCENT AUTO 53 % (41-73); Platelet Count 157 K/mm3 (150-400); RDW Standard Deviation 54.8 fL (35.1-46.3); Red Blood Cell Count 3.96 M/mm3 (4.30-5.90)
[2020-06-07 04:42] LABS: Albumin/Globulin Ratio 0.9 (0.8-1.8); Bilirubin, Total 0.8 mg/dL (0.1-1.0); Bun/Creatinine Ratio 14.6 (12.0-20.0); Calcium, Blood 8.6 mg/dL (8.5-10.1); Creatinine, Blood 1.78 mg/dL (0.60-1.20); Globulin, Blood 3.2 g/dL (2.2-4.0); Potassium, Blood 4.7 mmol/L (3.5-5.5); Total Protein, Blood 6.2 g/dL (6.4-8.2)
--- NOTE | 2020-06-07 13:00 | NUR ---
UPDATE REPORT GIVEN TO BRUCE WEIR TO ASSUME CARE.
--- NOTE | 2020-06-07 13:09 | NUR ---
ASSUMED CARE OF PT FROM LEE WEIR. PT IS RESTING IN BED, DENIES ANY CHEST PAIN. LUNGS ARE CLEAR TO ASCULTATION AND PT IS ON 2L O2 VIA NC. FAMILY IS AT BEDSIDE, UPDATED PT AND FAMILY ON PLAN OF STRESS TEST TODAY. REMINDED PT ON USE OF CALL LIGHT, BED ALARM IN PLACE FOR SAFETY.
--- NOTE | 2020-06-07 16:54 | NUR ---
echocardiogram complete
--- NOTE | 2020-06-07 18:17 | NUR ---
SHIFT SUMMARY PT IS ALERT AND ORIENTx4. PT DENIES ANY CHEST PAIN, C/O MORE ABD PAIN AND JOINT PAIN. DR DE LA VEGA SAW PT THIS EVENING AND IS OKAY WITH CHANGING PT'S STATUS TO MEDICAL WITH TELEMETRY. TELEMETRY HAS SHOWN PT TO BE IN SINUS BEN, DECREASED CARDIAC MEDS THIS EVENING. 1ST PORTION OF STRESS TEST COMPLETED TODAY. PT REPORTS NO BM FOR COUPLE OF DAYS, ORDERS RECEIVED FOR BOWEL MEDS. VITALS HAVE BEEN STABLE SINCE ASSUMING CARE OF PT THIS AFTERNOON. PT WAS STATUS CHANGED TO MEDICAL WITH TELEMETRY THIS EVENING.
--- NOTE | 2020-06-07 22:32 | NUR ---
PATIENT IS A TRANSFER FROM PCU 8. PATIENT ARRIVED VIA BED, ALERT AND ORIENTED X3 BUT IS FORGETFUL AT TIMES. BED ALARM PLACED. LUNG SOUNDS CLEAR BUT DIMINISHED, CHRONIC COUGH, WITH SMALL AMOUNT OF SPUTUM. HR SINUS, DOES GET BEN AT TIME. REPORTS TIGHTNESS AND PRESSURE POINTING TO THE UPPER GASTRIC AREA AT BOTTOM OF RIB CAGE, DIAPHRAM AREA. DENIES CHEST PAIN, NAUSEA, HEADACHES, DIZZINESS. NO EDEMA NOTED. SKIN WITH SOME SMALL SCABS SCATTERED. CONTIENT BOWEL AND URINE. INSTRUCTED ON CALLING BEFORE GETTING UP, CALL LIGHT GIVEN. WILL CONTINUE TO MONITOR.
--- NOTE | 2020-06-07 22:34 | NUR ---
PT A&O; DENIES CHEST PAIN/PRESSURE; VSS; SINUS BEN NOTED ON TELE; PT DENIES SOB; O2 SATS >93 ON 3L NC; W/ DIM LUNG SOUNDS; EDUCATION PROVIDED FOR SAFETY & CALL LIGHT; PT EDUCATION PROVIDED FOR NPO AT 0000 FOR SECOND PART STRESS TEST; NO DISTRESS NOTED; PT DENIES NEEDS; TRANSFER ORDERS FOR MED FLOOR W/ TELE; REPORT GIVEN TO DESTIN GAN; PT, BELONGINGS AND MEDS TRANSPORTED BY BED TO ROOM 361;
--- NOTE | 2020-06-07 23:03 | NUR ---
BED ALARM SOUNDING, HE FORGOT TO USE CALL LIGHT. APPEARS TO BE STEADY ON HIS FEET WHILE HE USED THE URINAL. BUT THEN WHEN HE TURNED HE SAID HE LEG LOCKED UP ON HIM AND HURT CAUSING HIM TO [place]. HE ALSO HAD TROUBLE TURNING OFF THE TV PUSHING THE CALL BUTTON INSTEAD. BED ALARM WAS PLACED BACK ON.
--- NOTE | 2020-06-08 06:32 | NUR ---
SHIFT SUMMARY: SAMANTHA WAS A TRANSFER FROM U 8. AOX3 WITH FORGETFULNESS. OCCATIONALLY FORGETS TO USE THE CALL LIGHT BEFORE GETTING UP TO USE THE URINAL. CAN BE UNSTEADY ON HIS FEET. REPORTS PAIN LIKE A BAND AROUND HIS UPPER GASTRIC AREA, PAIN IS TOLERABLE NO MEDS WERE GIVEN. NO CHEST PAIN BUT DID HAVE SOB WITH EXERTION. ON 2 LITERS OF O2, SATS IN THE 90'S. VS WNL. AFEBRILE. CAN DIP DOWN INTO THE 40'S ON TELE. SLEPT OFF AND ON THIS SHIFT. WILL REPORT TO DAY SHIFT RN. CALL LIGHT IN REACH, BED ALARM ON.
[2020-06-08] MEDS ORDERED: ASPI81CH PO (12:50)
[2020-06-08] MEDS ORDERED: SENN187 PO (12:51)
[2020-06-08] MEDS ORDERED: DOCU100 PO (12:51)
[2020-06-08] MEDS ORDERED: POLYETHYLENE G500 G1 PO (12:51)
--- NOTE | 2020-06-08 15:07 | NUR ---
1430 PT DISCHARGED HOME VIA PERSONAL VEHICLE ACCOMPANIED AND DRIVEN BY DAUGHTER. ESCORTED TO ENTRANCE BY THIS RN. IV REMOVED. D/C INSTRUCTIONS REVIEWED WITH PT AND COPY PROVIDED. NO NEW CHANGES OR CONCERNS.
== END 2020-06-08 14:31 | disposition home or self-care (01) ==
LOC: ER 11:35 → PCU 11:36 → ERHOLD 11:36 → PCU 20:38 → MEDS 06-07 22:32 → ENPENDDIS 06-08 12:31 → MEDS 06-08 14:31
PROVIDERS: Emergency Medicine; Physician Assistant; ADMIT Family Medicine
DX: R79.89 Other specified abnormal findings of blood chemistry (principal); I25.10 Atherosclerotic heart disease of native coronary artery without angina pectoris; K59.00 Constipation, unspecified; I48.0 Paroxysmal atrial fibrillation; N18.3 Chronic kidney disease, stage 3 (moderate); M70.62 Trochanteric bursitis, left hip; M54.5 Low back pain; I73.9 Peripheral vascular disease, unspecified; J44.9 Chronic obstructive pulmonary disease, unspecified; R10.13 Epigastric pain; Z87.891 Personal history of nicotine dependence; E78.5 Hyperlipidemia, unspecified; K21.9 Gastro-esophageal reflux disease without esophagitis; Z88.8 Allergy status to other drugs, medicaments and biological substances; Z88.1 Allergy status to other antibiotic agents; Z79.01 Long term (current) use of anticoagulants; Z79.82 Long term (current) use of aspirin; Z79.899 Other long term (current) drug therapy; N43.3 Hydrocele, unspecified; K44.9 Diaphragmatic hernia without obstruction or gangrene; N40.0 Benign prostatic hyperplasia without lower urinary tract symptoms; M79.662 Pain in left lower leg
CPT/HCPCS: 36415; 70450; 71046; 74177; 78452; 80053; 81000; 82550; 83036; 83690; 83880; 84443; 84484; 85025; 85610; 85730; 93005; 93010; 93017; 93306; 93971; 94640; 94760; 96374; 99285-25; A9270-GY; A9500; G0378; J1644; J2785; Q9967

== ENCOUNTER 2020-08-07 03:28 | Inpatient (IN) | payer MEDICARE ==
[~2020-08-07] VITALS: Ht 182.9 cm; Wt 104.3 kg
[~2020-08-07 03:28] MED LIST changes: +ALBU2.5V5 NEB; +DOCU100 PO; +ELIQUIS5 MG PO; +FLUTICASONE-SA1 EA10 INH; +ISOSORBIDE MONO30 MG PO; +METO25 PO; +PACERONE100 M1 PO; +POLYETHYLENE G500 G1 PO; +POTA8 PO; +TAMS.4ER PO; +Tessalon200 MG PO; +[UNRECOGNIZED DRUG - OTHER] PO; +[UNRECOGNIZED DRUG - REMARK] PO
[2020-08-07 03:59] LABS: BASOPHILS ABSOLUTE AUTO 0.04 K/mm3 (0.00-0.23); BASOPHILS PERCENT AUTO 1 % (0-2); EOSINOPHILS ABSOLUTE AUTO 0.29 K/mm3 (0.00-0.68); EOSINOPHILS PERCENT AUTO 4 % (0-6); Hematocrit 31.8 % (37.0-53.0); Hemoglobin 9.7 g/dL (13.5-17.5); IMMATURE GRAN ABSOLUTE AUTO 0.02 K/mm3 (0.00-0.10); IMMATURE GRAN PERCENT AUTO 0 % (0-1); LYMPHOCYTES ABSOLUTE AUTO 3.36 K/mm3 (0.84-5.20); LYMPHOCYTES PERCENT AUTO 42 % (21-46); MONOCYTES ABSOLUTE AUTO 0.49 K/mm3 (0.16-1.47); MONOCYTES PERCENT AUTO 6 % (4-13); Mean Corpuscular HGB 28.3 pg (26.0-34.0); Mean Corpuscular HGB Conc 30.5 g/dL (31.5-36.5); Mean Corpuscular Volume 93 fL (80-100); Mean Platelet Volume 9.1 fL (9.1-12.4); NEUTROPHILS ABSOLUTE AUTO 3.84 K/mm3 (1.96-9.15); NEUTROPHILS PERCENT AUTO 48 % (41-73); Platelet Count 169 K/mm3 (150-400); RDW Coefficient Variation 16.9 % (11.7-14.2); RDW Standard Deviation 57.3 fL (35.1-46.3); Red Blood Cell Count 3.43 M/mm3 (4.30-5.90); White Blood Cell Count 8.04 K/mm3 (4.00-11.30)
[2020-08-07 04:13] LABS: Albumin, Blood 3.4 g/dL (3.4-5.0); Albumin/Globulin Ratio 1.1 (0.8-1.8); Bilirubin, Total 0.5 mg/dL (0.1-1.0); Bun/Creatinine Ratio 17.6 (12.0-20.0); Calcium, Blood 8.9 mg/dL (8.5-10.1); Creatinine, Blood 2.04 mg/dL (0.60-1.20); Globulin, Blood 3.1 g/dL (2.2-4.0); Potassium, Blood 4.7 mmol/L (3.5-5.5); Total Protein, Blood 6.5 g/dL (6.4-8.2); Troponin I 0.036 ng/mL (0.000-0.040)
[2020-08-07 04:26] LABS: PCO2 Arterial 48.3 mmHg (35-45); PO2 Arterial 53.4 mmHg (80-100); pH Blood Arterial 7.37 (7.35-7.45)
[2020-08-07 04:48] LABS: Adenovirus Not Detected (NOT DETECT); Bordetella pertussis Not Detected (NOT DETECT); Chlamydophila pneumoniae Not Detected (NOT DETECT); Coronavirus 229E Not Detected (NOT DETECT); Coronavirus HKU1 Not Detected (NOT DETECT); Coronavirus NL63 Not Detected (NOT DETECT); Coronavirus OC43 Not Detected (NOT DETECT); Human Metapneumovirus Not Detected (NOT DETECT); Human Rhinovirus/Enterovirus Detected (NOT DETECT); Influenza A/2009-H1 Not Detected (NOT DETECT); Influenza A/H1 Not Detected (NOT DETECT); Influenza A/H3 Not Detected (NOT DETECT); Influenza B Not Detected (NOT DETECT); Mycoplasma pneumoniae Not Detected (NOT DETECT); Parainfluenza Virus 1 Not Detected (NOT DETECT); Parainfluenza Virus 2 Not Detected (NOT DETECT); Parainfluenza Virus 3 Not Detected (NOT DETECT); Parainfluenza Virus 4 Not Detected (NOT DETECT); Respiratory Syncytial Virus Not Detected (NOT DETECT); SARS-Cov-2 (COVID-19), BioFire Not Detected (NOT DETECT)
--- NOTE | 2020-08-07 17:33 | NUR ---
PATIENT IS ALERT AND ORIENTED AND COOPERATIVE WITH CARE. ON 2L O2 VIA NC WHICH IS HIS BASELINE. PATIENT HAD A BM TODAY. HE IS A SBA TO THE BATHROOM. NO COMPLAINTS OF SOB. WILL CONTINUE TO MONITOR.
--- NOTE | 2020-08-08 04:46 | NUR ---
SUMMARY PT C/O ONGOING COUGH. PROVIDER SHIVANI ORDERED MEDS AND PT RESPONDED WELL. PT HAS BEEN ABLE TO SLEEP AFTER COUGH WAS CONTROLLED. PT CURRENTLY SLEEPING AND BREATHING EASY. NO PERIODS OF SOB NOTED. CALL LIGHT IN REACH.
[2020-08-08 05:31] LABS: BASOPHILS ABSOLUTE AUTO 0.01 K/mm3 (0.00-0.23); BASOPHILS PERCENT AUTO 0 % (0-2); EOSINOPHILS PERCENT AUTO 0 % (0-6); Hematocrit 30.1 % (37.0-53.0); Hemoglobin 9.1 g/dL (13.5-17.5); IMMATURE GRAN ABSOLUTE AUTO 0.07 K/mm3 (0.00-0.10); IMMATURE GRAN PERCENT AUTO 1 % (0-1); LYMPHOCYTES ABSOLUTE AUTO 0.27 K/mm3 (0.84-5.20); LYMPHOCYTES PERCENT AUTO 3 % (21-46); MONOCYTES ABSOLUTE AUTO 0.23 K/mm3 (0.16-1.47); MONOCYTES PERCENT AUTO 2 % (4-13); Mean Corpuscular HGB 27.8 pg (26.0-34.0); Mean Corpuscular HGB Conc 30.2 g/dL (31.5-36.5); Mean Corpuscular Volume 92 fL (80-100); Mean Platelet Volume 9.2 fL (9.1-12.4); NEUTROPHILS ABSOLUTE AUTO 8.82 K/mm3 (1.96-9.15); NEUTROPHILS PERCENT AUTO 94 % (41-73); Platelet Count 173 K/mm3 (150-400); RDW Coefficient Variation 16.8 % (11.7-14.2); RDW Standard Deviation 57.5 fL (35.1-46.3); Red Blood Cell Count 3.27 M/mm3 (4.30-5.90)
[2020-08-08 05:59] LABS: Bun/Creatinine Ratio 24.3 (12.0-20.0); Calcium, Blood 8.7 mg/dL (8.5-10.1); Creatinine, Blood 1.69 mg/dL (0.60-1.20); Magnesium, Blood 2.3 mg/dL (1.6-2.4); Potassium, Blood 4.7 mmol/L (3.5-5.5)
--- NOTE | 2020-08-08 14:55 | NUR ---
Advance Directive (AD) education attempted/Spiritual care visit conducted. Upon receiving an admit referral for AD education, I visit patient. Patient is sitting up in bed and alert. Patient tells me that he is DNR and that he has already filled out an AD. I explain I was trying to follow up on the possibility that he had an interest in education about the AD. Patient agreed to take the booklet to ask his daughter about it. He states he has no interest and so we talk about his family, his career and the of his spouse 12yrs ago. Patient explains that he lost all drive to live, work, pursue hobbies etc. after her . We talk about the work of bereavement and the pain of that kind of loss. I normalize patient's experience and provide grief support and companionship. Patient responds well and shows signs of an elevated mood. I will continue to remain available to patient and family. After returning to my office and reviewing patient's chart I see that he does have a POLST which pretty much negates the need for an AD.
--- NOTE | 2020-08-08 18:39 | NUR ---
SHIFT SUMMARY PT IS AOX4 AND PLEASANT. PT CONTINUES TO HAVE COUGH. PT DENIES PAIN, N/V, SOB. PT IS ONE PERSON STANDBY ASSIST/INDEPENDENT IN ROOM. PLAN IS TO STAY 1-2 DAYS FOR OBSERVATION OF STATUS. BREATHING TREATMENTS DONE PER RT. PT IS IN BED, CALL LIGHT IN REACH, LOW POSITION.
--- NOTE | 2020-08-09 06:06 | NUR ---
BLENDING COORDINATOR SUMMARY PT IS A&OX4, ABLE TO MAKE NEEDS KNOWN. PLEASANT AND COOPERATIVE TO CARE. NO C/O PAIN, DENIES CP OR N&V. SOB WITH EXERTION NOTED. PT CONT TO HAVE PRODUCTIVE COUGH, PRN GUAIFENESIN GIVEN ORDERED. BREATHING TX PROVIDED PER RT. PT CONT ON O2 3LPM VIA NC. BED AT LOWEST POSITION, CALL LIGHT WITHIN REACH.
--- NOTE | 2020-08-09 17:28 | NUR ---
SHIFT SUMMARY PATIENT ALERT AND ORIENTED THIS SHIFT. PATIENT CONTINUES TO HAVE A WET, PRODUCTIVE COUGH. PATIENT MEDICATED WITH ROBITUSSUM AND TESSALON PEARLS THIS SHIFT FOR COUGH. PATIENT WALKED IN THE HALLWAY WITH RISK LEAD THIS SHIFT. PATIENT SITTING UP IN BED THROUGHOUT THIS SHIFT. PATIENT REMAINS ON 3L O2, WITH A 2L HOME BASELINE. PATIENT STATES HE CONTINUES TO HAVE SOB WHEN ACTIVE. PATIENT CURRENTLY SITTING UP IN BED EATING DINNER.
[2020-08-10 05:50] LABS: BASOPHILS ABSOLUTE AUTO 0.02 K/mm3 (0.00-0.23); BASOPHILS PERCENT AUTO 0 % (0-2); EOSINOPHILS PERCENT AUTO 0 % (0-6); Hematocrit 30.6 % (37.0-53.0); Hemoglobin 9.3 g/dL (13.5-17.5); IMMATURE GRAN ABSOLUTE AUTO 0.16 K/mm3 (0.00-0.10); IMMATURE GRAN PERCENT AUTO 2 % (0-1); LYMPHOCYTES ABSOLUTE AUTO 0.95 K/mm3 (0.84-5.20); LYMPHOCYTES PERCENT AUTO 13 % (21-46); MONOCYTES ABSOLUTE AUTO 0.65 K/mm3 (0.16-1.47); MONOCYTES PERCENT AUTO 9 % (4-13); Mean Corpuscular HGB 28.1 pg (26.0-34.0); Mean Corpuscular HGB Conc 30.4 g/dL (31.5-36.5); Mean Corpuscular Volume 92 fL (80-100); Mean Platelet Volume 9.1 fL (9.1-12.4); NEUTROPHILS ABSOLUTE AUTO 5.69 K/mm3 (1.96-9.15); NEUTROPHILS PERCENT AUTO 76 % (41-73); Platelet Count 188 K/mm3 (150-400); RDW Coefficient Variation 17.1 % (11.7-14.2); RDW Standard Deviation 57.9 fL (35.1-46.3); Red Blood Cell Count 3.31 M/mm3 (4.30-5.90); White Blood Cell Count 7.47 K/mm3 (4.00-11.30)
[2020-08-10 06:12] LABS: Bun/Creatinine Ratio 26.1 (12.0-20.0); Calcium, Blood 8.5 mg/dL (8.5-10.1); Creatinine, Blood 1.84 mg/dL (0.60-1.20); Potassium, Blood 5.1 mmol/L (3.5-5.5)
--- NOTE | 2020-08-10 06:38 | NUR ---
SHIFT SUMMARY PT IS A 74 Y/O MALE, ADMITTED FOR COPD EXACERBATION. HE IS A&O X 3, VERY [place], SBA TO THE BATHROOM. NO COMPLAINTS OF ACUTE PAIN OR NAUSEA, THOUGH PT DID REPORT AN INTERMITTENT COUGH AND MILD SOB WITH EXERTION. PT IS CURRENTLY ON 3L OF O2 VIA NC. VITAL SIGNS STABLE. NO OTHER ACUTE CHANGES IN PT CONDITION NOTED DURING THE NIGHT. WILL CONTINUE TO MONITOR AND TREAT PER EMAR UNTIL HAND OFF TO DAY SHIFT RN.
--- NOTE | 2020-08-10 17:06 | NUR ---
SHIFT SUMMARY PATIENT ALERT AND ORIENTED THIS SHIFT. PATIENT AMBULATED IN CIFUENTES WITH STANDBY ASSIST THIS SHIFT. PATIENT INDEPENDENT TO THE BATHROOM. CALLS APPROPRIATELY. PATIENT CONTINUES TO HAVE A WET PRODUCTIVE COUGH. PATIENT MEDICATED WITH ROBITUSSIN THROUGHOUT THIS SHIFT. PATIENT IS CURRENTLY SITTING UP IN BED WATCHING TELEVISION.
--- NOTE | 2020-08-11 05:50 | NUR ---
SHIFT SUMMARY PT IS A 74 Y/O MALE, ADMITTED FOR COPD EXACERBATION. HE IS A&O X 4, SBA TO THE BATHROOM. NO C/O ACUTE PAIN, NAUSEA OR SOB, THOUGH DOES STILL REPORT A MILD COUGH. PT WAS MEDICATED WITH COUGH MEDS AT HS. VITAL SIGNS STABLE. PT SLEPT WELL THROUGH THE NIGHT. NO ACUTE CHANGES IN PT CONDITION NOTED. WILL CONTINUE TO MONITOR AND TREAT PER EMAR UNTIL HAND OFF TO DAY SHIFT RN.
--- NOTE | 2020-08-11 15:43 | NUR ---
SUMMARY PT IS A/O X4, PLEASANT AFFECT. HE STATE CONTINUING SHORTNESS OF BREATH HOWEVER FEELS LIKE HE IS IMPROVING. CONTINUING CONGESTED COUGH, LUNGS ARE DECREASED SOMEWHAT TIGHT BASES, O2 @ 2L, BIOX HIGH 90'S. PRN TESSALON & ROBITUSSIN TODAY, DR NAPIER ADD MUCINEX 600MG BID. PT HAS BEEN USING FLUTTER VALVE. HE AMBULATED IN CIFUENTES TODAY w PROCESSOR SOLID PROPELLANT. VSS.
[2020-08-12 05:39] LABS: Hematocrit 31.8 % (37.0-53.0); Hemoglobin 9.7 g/dL (13.5-17.5); Mean Corpuscular HGB 28.3 pg (26.0-34.0); Mean Corpuscular HGB Conc 30.5 g/dL (31.5-36.5); Mean Corpuscular Volume 93 fL (80-100); Mean Platelet Volume 8.8 fL (9.1-12.4); NRBC ABSOLUTE 0.02 K/mm3 (0.00-0.02); NRBC Auto 0.4 /100 WBC (0.0-0.2); Platelet Count 179 K/mm3 (150-400); RDW Coefficient Variation 16.2 % (11.7-14.2); RDW Standard Deviation 55.5 fL (35.1-46.3); Red Blood Cell Count 3.43 M/mm3 (4.30-5.90); White Blood Cell Count 5.42 K/mm3 (4.00-11.30)
[2020-08-12 06:03] LABS: BASOPHILS PERCENT MAN 0 % (0-2); EOSINOPHILS PERCENT MAN 0 % (0-6); LYMPHOCYTES % ATYPICAL MANUAL 1 % (0-0); LYMPHOCYTES ABSOLUTE MAN 1.08 K/mm3 (0.84-5.20); LYMPHOCYTES PERCENT MAN 19 % (21-46); METAMYELOCYTE ABSOLUTE MAN 0.05 K/mm3 (0.00-0.00); METAMYELOCYTE PERCENT MAN 1 % (0-0); MONOCYTES ABSOLUTE MAN 0.48 K/mm3 (0.16-1.47); MONOCYTES PERCENT MAN 9 % (4-13); MYELOCYTE ABSOLUTE MAN 0.21 K/mm3 (0.00-0.00); MYELOCYTE PERCENT MAN 4 % (0-0); NEUTROPHILS ABSOLUTE MAN 3.57 K/mm3 (1.96-9.15); SEG NEUTROPHILS PERCENT MAN 66 % (41-73); TOTAL CELLS COUNTED 100
[2020-08-12 06:04] LABS: Bun/Creatinine Ratio 21.8 (12.0-20.0); Calcium, Blood 8.3 mg/dL (8.5-10.1); Creatinine, Blood 1.65 mg/dL (0.60-1.20); Potassium, Blood 4.4 mmol/L (3.5-5.5)
--- NOTE | 2020-08-12 06:14 | NUR ---
SHIFT SUMMARY PT IS A 74 Y/O MALE, ADMITTED FOR COPD EXACERBATION. HE IS A&O X 4, INDEPENDENT TO THE BATHROOM. PT DID REPORT DYSPNEA WITH EXERTION, AND REMAINS ON 2L OF O2 VIA NC. NO C/O PAIN OR NAUSEA. VITAL SIGNS STABLE. NO ACUTE CHANGES IN PT CONDITION NOTED DURING THE NIGHT. WILL CONTINUE TO MONITOR AND TREAT PER EMAR UNTIL HAND OFF TO DAY SHIFT RN.
--- NOTE | 2020-08-12 19:09 | NUR ---
SHIFT SUMMARY SAMANTHA HAD HOME OXYGEN EVAL. IS ON 2L AT BASELINE, BUT PT REFUSES TO WEAR IT WHEN UP WALKING. EVAL SHOWED HE NEEDS 5L W/ AMBULATION, PT EDUCATED ON IMPORTANCE, ADAMANTLY REFUSING TO WEAR HOME OXYGEN. INDEP IN ROOM. LUNGS CRACKLES/WHEEZES, LIKELY DC TOMORROW.
--- NOTE | 2020-08-12 21:25 | NUR ---
1945 PT RESTING COMFORTABLY LOW FOWLERS POSITION WHILE WEARING O2 AT 2L/M PER NASAL CANNULA; LUNG SOUNDS ARE COARSE THROUGHOUT; DENIES CHEST PAIN OR NAUSEA; ALERT AND ORIENTED X 4.
--- NOTE | 2020-08-13 03:11 | NUR ---
SHIFT SUMMARY: 74 Y/O MALE RESTED COMFORTABLY ALL SHIFT; PT WEARING O2 AT 2L/M PER NASAL CANNULA WITH O2 SATS AVERAGING 91%; PT TENDS NOT WEAR O2 WHILE UP TO BATHROOM AT TIMES HE FEELS NOT REQUIRED ALL TIME; DENIES CHEST PAIN OR NAUSEA; EAGER TO RETURN HOME; BED LOW POSITION WITH CALL LIGHT AT SIDE; LUNG SOUNDS ARE COARSE THROUGHOUT WITH NO COUGH.
--- NOTE | 2020-08-13 05:41 | NUR ---
0525 PT ADMITTED TO ROOM 355 PER CART FROM ER; REPORT RECEIVED FROM DESTIN VAZ, VIA ER.
--- NOTE | 2020-08-13 07:36 | NUR ---
ASSUMED CARE OF PT- BEDSIDE REPORT COMPLETED WITH NIGHT RN. PER REPORT PT TO POSSIBLY DC HOME TODAY. PT STILL FREQUENTLY FORGETS THAT HE NEEDS TO WEAR O2, PER RT YESTERDAY. WILL CONTINUE TO REMIND THE PT HE NEEDS TO WEAR IT. WILL CTM PT.
[2020-08-13 08:17] LABS: BASOPHILS ABSOLUTE AUTO 0.03 K/mm3 (0.00-0.23); BASOPHILS PERCENT AUTO 0 % (0-2); EOSINOPHILS ABSOLUTE AUTO 0.02 K/mm3 (0.00-0.68); EOSINOPHILS PERCENT AUTO 0 % (0-6); Hematocrit 30.6 % (37.0-53.0); Hemoglobin 9.3 g/dL (13.5-17.5); IMMATURE GRAN PERCENT AUTO 4 % (0-1); LYMPHOCYTES ABSOLUTE AUTO 1.53 K/mm3 (0.84-5.20); LYMPHOCYTES PERCENT AUTO 19 % (21-46); MONOCYTES ABSOLUTE AUTO 0.62 K/mm3 (0.16-1.47); MONOCYTES PERCENT AUTO 8 % (4-13); Mean Corpuscular HGB Conc 30.4 g/dL (31.5-36.5); Mean Corpuscular Volume 92 fL (80-100); Mean Platelet Volume 9.1 fL (9.1-12.4); NEUTROPHILS ABSOLUTE AUTO 5.79 K/mm3 (1.96-9.15); NEUTROPHILS PERCENT AUTO 70 % (41-73); Platelet Count 201 K/mm3 (150-400); RDW Coefficient Variation 16.2 % (11.7-14.2); RDW Standard Deviation 54.5 fL (35.1-46.3); Red Blood Cell Count 3.32 M/mm3 (4.30-5.90); White Blood Cell Count 8.29 K/mm3 (4.00-11.30)
[2020-08-13 08:40] LABS: Bun/Creatinine Ratio 22.8 (12.0-20.0); Calcium, Blood 8.4 mg/dL (8.5-10.1); Creatinine, Blood 1.58 mg/dL (0.60-1.20); Potassium, Blood 4.7 mmol/L (3.5-5.5)
[2020-08-13] MEDS ORDERED: SYSTANE GEL10 GM BOTHEYES (14:22)
[2020-08-13] MEDS ORDERED: BENMENLOZ PO (14:23)
[2020-08-13] MEDS ORDERED: IPRAT-ALBUT 0.5-3 ML INH (14:27)
[2020-08-13] MEDS ORDERED: TIOT18 INH (14:28)
[2020-08-13] MEDS ORDERED: ONDA4ODT MM (14:28)
[2020-08-13] MEDS ORDERED: GUAI600T33 PO (14:28)
--- NOTE | 2020-08-13 15:04 | NUR ---
DISCHARGE NOTE- PT AND DAUGHTER WERE GIVEN VERBAL AND WRITTEN DISCHAGRE INSTRUCTIONS AND ACKNOWLEDGED UNDERSTANDING OF THEM. MEDS WERE FAXED TO [facility] PER PT REQUEST. PT WAS ESCORTED OUT VIA WC REMINDED TO KEEP O2 IN PLACE CONTINUIOUSLY. IV DC'D AT THE TIME OF DISCHARGE.
== END 2020-08-13 15:00 | disposition home or self-care (01) | DRG 189 ==
LOC: ER 03:28 → ERHOLD 03:29 → MEDS 11:19
PROVIDERS: Emergency Medicine; Family Medicine; ADMIT Internal Medicine
DX: J96.21 Acute and chronic respiratory failure with hypoxia (principal); J44.1 Chronic obstructive pulmonary disease with (acute) exacerbation; N17.9 Acute kidney failure, unspecified; B97.89 Other viral agents as the cause of diseases classified elsewhere; I12.9 Hypertensive chronic kidney disease with stage 1 through stage 4 chronic kidney disease, or unspecified chronic kidney disease; N18.30 Chronic kidney disease, stage 3 unspecified; I25.10 Atherosclerotic heart disease of native coronary artery without angina pectoris; E78.5 Hyperlipidemia, unspecified; K21.9 Gastro-esophageal reflux disease without esophagitis; Z91.14 Patient's other noncompliance with medication regimen; I48.0 Paroxysmal atrial fibrillation; Z91.81 History of falling; Z95.1 Presence of aortocoronary bypass graft; Z99.81 Dependence on supplemental oxygen; Z91.19 Patient's noncompliance with other medical treatment and regimen; Z20.828 Contact with and (suspected) exposure to other viral communicable diseases; D63.1 Anemia in chronic kidney disease
CPT/HCPCS: 0202U; 36415; 36600; 71045; 80048; 80053; 82803; 83735; 83880; 84484; 85025; 93005; 93010; 94640; 94644; 94668; 94760; 94761; 96374; 99285-25; A9270; A9270-GY; G0378; J1650; J2920; J2930; J7512; Q2038

== ENCOUNTER 2020-10-30 09:57 | Emergency (ER) | payer MEDICARE ==
[~2020-10-30] VITALS: Ht 188 cm; Wt 106.6 kg
[~2020-10-30 09:57] MED LIST changes: +BENMENLOZ PO; +IPRAT-ALBUT 0.5-3 ML INH; +ONDA4ODT MM; +SYSTANE GEL10 GM BOTHEYES
[2020-10-30] MEDS ORDERED: ACET500 PO (12:56)
[2020-10-30] MEDS ORDERED: OXAYDO5 M1 PO (12:56)
[2020-10-30] MEDS ORDERED: Voltaren100 GM TOP (12:56)
== END 2020-10-30 13:04 | disposition home or self-care (01) ==
LOC: ER 09:57
DX: S83.92XA Sprain of unspecified site of left knee, initial encounter (principal); S70.02XA Contusion of left hip, initial encounter; I13.0 Hypertensive heart and chronic kidney disease with heart failure and stage 1 through stage 4 chronic kidney disease, or unspecified chronic kidney disease; I50.9 Heart failure, unspecified; I25.2 Old myocardial infarction; N18.30 Chronic kidney disease, stage 3 unspecified; E78.5 Hyperlipidemia, unspecified; J44.9 Chronic obstructive pulmonary disease, unspecified; I25.810 Atherosclerosis of coronary artery bypass graft(s) without angina pectoris; I48.91 Unspecified atrial fibrillation; Z87.891 Personal history of nicotine dependence; Z79.82 Long term (current) use of aspirin; Z79.01 Long term (current) use of anticoagulants; Z79.899 Other long term (current) drug therapy; Z95.1 Presence of aortocoronary bypass graft; Z88.8 Allergy status to other drugs, medicaments and biological substances; W18.30XA Fall on same level, unspecified, initial encounter; Y92.009 Unspecified place in unspecified non-institutional (private) residence as the place of occurrence of the external cause
CPT/HCPCS: 73502; 73562-LT; 97110; 97116; 97161; 99283-25; A9270

== ENCOUNTER 2020-12-04 21:16 | Emergency (ER) | payer MEDICARE ==
[~2020-12-04] VITALS: Ht 188 cm; Wt 104.3 kg
[~2020-12-04 21:16] MED LIST changes: +ACET500 PO; +OXAYDO5 M1 PO; +Voltaren100 GM TOP
[2020-12-04 21:49] LABS: BASOPHILS ABSOLUTE AUTO 0.03 K/mm3 (0.00-0.23); BASOPHILS PERCENT AUTO 0 % (0-2); EOSINOPHILS ABSOLUTE AUTO 0.06 K/mm3 (0.00-0.68); EOSINOPHILS PERCENT AUTO 1 % (0-6); Hematocrit 29.9 % (37.0-53.0); Hemoglobin 8.6 g/dL (13.5-17.5); IMMATURE GRAN ABSOLUTE AUTO 0.08 K/mm3 (0.00-0.10); IMMATURE GRAN PERCENT AUTO 1 % (0-1); LYMPHOCYTES ABSOLUTE AUTO 1.07 K/mm3 (0.84-5.20); LYMPHOCYTES PERCENT AUTO 10 % (21-46); MONOCYTES ABSOLUTE AUTO 0.62 K/mm3 (0.16-1.47); MONOCYTES PERCENT AUTO 6 % (4-13); Mean Corpuscular HGB 24.8 pg (26.0-34.0); Mean Corpuscular HGB Conc 28.8 g/dL (31.5-36.5); Mean Corpuscular Volume 86 fL (80-100); Mean Platelet Volume 8.9 fL (9.1-12.4); NEUTROPHILS ABSOLUTE AUTO 8.56 K/mm3 (1.96-9.15); NEUTROPHILS PERCENT AUTO 82 % (41-73); Platelet Count 203 K/mm3 (150-400); RDW Coefficient Variation 15.4 % (11.7-14.2); RDW Standard Deviation 48.5 fL (35.1-46.3); Red Blood Cell Count 3.47 M/mm3 (4.30-5.90); White Blood Cell Count 10.42 K/mm3 (4.00-11.30)
[2020-12-04 22:02] LABS: International Normalized Ratio 1.02; Prothrombin Time Results 10.9 Sec (9.7-11.5)
[2020-12-04 22:07] LABS: Alanine Aminotransfer (ALT/SGP 15 U/L (12-78); Albumin, Blood 2.9 g/dL (3.4-5.0); Albumin/Globulin Ratio 0.9 (0.8-1.8); Alk Phos 63 U/L (50-136); Anion Gap 5 mmol/L (6-16); Aspartate Aminotrans (AST/SGOT 13 U/L (12-37); Bilirubin, Total 0.4 mg/dL (0.1-1.0); Blood Urea Nitrogen 32 mg/dL (8-24); Bun/Creatinine Ratio 15.5 (12.0-20.0); CO2, Blood 30 mmol/L (21-32); Calcium, Blood 8.3 mg/dL (8.5-10.1); Chloride, Blood 108 mmol/L (98-108); Creatinine, Blood 2.06 mg/dL (0.60-1.20); Ethanol (Alcohol), Blood, Med <3 mg/dL; Globulin, Blood 3.4 g/dL (2.2-4.0); Glomerular Filtration Rate 33 (60-); Glucose, Blood 110 mg/dL (70-99); Potassium, Blood 4.6 mmol/L (3.5-5.5); Sodium, Blood 143 mmol/L (136-145); Total Protein, Blood 6.3 g/dL (6.4-8.2)
== END 2020-12-04 23:16 | disposition home or self-care (01) ==
LOC: ER 21:16
PROVIDERS: Physician Assistant
DX: S22.32XA Fracture of one rib, left side, initial encounter for closed fracture (principal); J44.9 Chronic obstructive pulmonary disease, unspecified; I48.91 Unspecified atrial fibrillation; I50.9 Heart failure, unspecified; N18.30 Chronic kidney disease, stage 3 unspecified; K21.9 Gastro-esophageal reflux disease without esophagitis; Z79.01 Long term (current) use of anticoagulants; Z88.8 Allergy status to other drugs, medicaments and biological substances; Z79.899 Other long term (current) drug therapy; W18.30XA Fall on same level, unspecified, initial encounter
CPT/HCPCS: 36415; 71260; 74177; 80053; 83690; 85025; 85610; 86850; 86900; 86901; 93005; 93010; 96374-59; 96375; 99284-25; G0480; J2405; J3010; Q9967

== ENCOUNTER 2021-05-03 10:38 | Inpatient (IN) | payer OTHER, MEDICARE ==
[~2021-05-03] VITALS: Ht 182.9 cm; Wt 100.3 kg
[2021-05-03 11:42] LABS: BASOPHILS ABSOLUTE AUTO 0.04 K/mm3 (0.00-0.23); BASOPHILS PERCENT AUTO 1 % (0-2); EOSINOPHILS PERCENT AUTO 0 % (0-6); Hematocrit 35.2 % (37.0-53.0); Hemoglobin 10.2 g/dL (13.5-17.5); IMMATURE GRAN ABSOLUTE AUTO 0.02 K/mm3 (0.00-0.10); IMMATURE GRAN PERCENT AUTO 0 % (0-1); LYMPHOCYTES ABSOLUTE AUTO 1.25 K/mm3 (0.84-5.20); LYMPHOCYTES PERCENT AUTO 19 % (21-46); MONOCYTES ABSOLUTE AUTO 0.55 K/mm3 (0.16-1.47); MONOCYTES PERCENT AUTO 8 % (4-13); Mean Corpuscular HGB 25.6 pg (26.0-34.0); Mean Corpuscular Volume 88 fL (80-100); NEUTROPHILS PERCENT AUTO 73 % (41-73); Platelet Count 143 K/mm3 (150-400); RDW Coefficient Variation 20.9 % (11.7-14.2); RDW Standard Deviation 68.4 fL (35.1-46.3); Red Blood Cell Count 3.98 M/mm3 (4.30-5.90); White Blood Cell Count 6.76 K/mm3 (4.00-11.30)
[2021-05-03 12:19] LABS: Albumin, Blood 2.8 g/dL (3.4-5.0); Albumin/Globulin Ratio 0.8 (0.8-1.8); Bilirubin, Total 0.5 mg/dL (0.1-1.0); Bun/Creatinine Ratio 13.3 (12.0-20.0); Calcium, Blood 8.1 mg/dL (8.5-10.1); Creatinine, Blood 2.1 mg/dL (0.60-1.20); Globulin, Blood 3.5 g/dL (2.2-4.0); Potassium, Blood 4.6 mmol/L (3.5-5.5); Total Protein, Blood 6.3 g/dL (6.4-8.2); Troponin I 0.032 ng/mL (0.000-0.040)
[2021-05-03] MEDS ORDERED: BREO ELLIPTA 11 EAC1 INH (14:39)
[2021-05-03] MEDS ORDERED: POTA10T PO (14:42)
[2021-05-03] MEDS ORDERED: FURO40 PO (14:42)
[2021-05-03] MEDS ORDERED: ASCO500 PO (14:43)
[2021-05-03] MEDS ORDERED: Vitamin B-121000 MCG PO (14:43)
[2021-05-03] MEDS ORDERED: CENTRUM SILVER1 EAC2 PO (14:43)
[2021-05-03] MEDS ORDERED: ALBU3IS INH (14:48)
[2021-05-03] MEDS ORDERED: AMIODARONE HCL200 M1 PO (14:49)
[2021-05-03] MEDS ORDERED: ELIQUIS5 M2 PO (14:50)
[2021-05-03] MEDS ORDERED: ASPI81CH PO (14:51)
[2021-05-03] MEDS ORDERED: ATORVASTATIN CA80 M1 PO (14:52)
[2021-05-03] MEDS ORDERED: BENZ100A PO (14:53)
[2021-05-03] MEDS ORDERED: Breo Ellipta 200-25 INH (14:55)
[2021-05-03] MEDS ORDERED: FUROSEMIDE40 MG PO (14:56)
[2021-05-03] MEDS ORDERED: IPRAT-ALBUT 0.5-3 ML INH (14:57)
[2021-05-03] MEDS ORDERED: ISOSORBIDE MONO30 MG PO (14:58)
[2021-05-03] MEDS ORDERED: OXAYDO5 M1 PO (15:00)
[2021-05-03] MEDS ORDERED: KLOR-CON 1010 ME1 PO (15:01)
[2021-05-03] MEDS ORDERED: SENN187 PO (15:02)
[2021-05-03] MEDS ORDERED: FLOMAX0.4 MG PO (15:03)
[2021-05-03 16:07] LABS: SARS-Cov-2 (COVID-19) PCR, MMC NEGATIVE (NEGATIVE)
--- NOTE | 2021-05-03 18:56 | NUR ---
Shift summary, Patient arrived to the medical floor around 1700, A/OX4 to person, place, time and event. The patient is [place] but was cooperative and compliant with care. he was able to abulate small disrtances but c/o SOB. He is currently on a Pulse oxemeter and 3LPM. Patient had wet unproductive cough and the provider was contacted and 1x dose of 20mg lasix was proscribed. The Patient currenly laying in bed resting.
--- NOTE | 2021-05-04 05:26 | NUR ---
PATIENT PROFOUNDLY SOB ON 2 LITERS AT SHIFT CHANGE. AROUND 2229, WHEN PATIENT FELL ASLEEP, HIS SATURATIONS DROPPED INTO MID 60'S AND SLOWLY CAME UP INTO THE LOW 80'S AFTER ABOUT 10 MINUTES OF BEING AWAKE. 02 INCREASED TO 5 LITERS HIGH FLOW, THEN EVENTUALLY UP TO 7 WHEN PATIENT FELL ASLEEP AND DROPPED INTO THE MID 80'S AGAIN. PATIENT HAS A VERY STRONG LOOSE COUGH PRODUCTIVE OF THICK SERRANO/BROWN SPUTUM IN LARGE QUANTITIES. FOR SAFETY, ALL COVID PRECAUTIONS WERE OBSERVED
[2021-05-04 05:44] LABS: BASOPHILS ABSOLUTE AUTO 0.01 K/mm3 (0.00-0.23); BASOPHILS PERCENT AUTO 0 % (0-2); EOSINOPHILS PERCENT AUTO 0 % (0-6); Hematocrit 36.5 % (37.0-53.0); Hemoglobin 10.4 g/dL (13.5-17.5); IMMATURE GRAN ABSOLUTE AUTO 0.02 K/mm3 (0.00-0.10); IMMATURE GRAN PERCENT AUTO 0 % (0-1); LYMPHOCYTES ABSOLUTE AUTO 0.79 K/mm3 (0.84-5.20); LYMPHOCYTES PERCENT AUTO 13 % (21-46); MONOCYTES ABSOLUTE AUTO 0.18 K/mm3 (0.16-1.47); MONOCYTES PERCENT AUTO 3 % (4-13); Mean Corpuscular HGB 25.6 pg (26.0-34.0); Mean Corpuscular HGB Conc 28.5 g/dL (31.5-36.5); Mean Corpuscular Volume 90 fL (80-100); Mean Platelet Volume 9.5 fL (9.1-12.4); NEUTROPHILS ABSOLUTE AUTO 4.89 K/mm3 (1.96-9.15); NEUTROPHILS PERCENT AUTO 83 % (41-73); Platelet Count 121 K/mm3 (150-400); RDW Coefficient Variation 20.2 % (11.7-14.2); RDW Standard Deviation 65.2 fL (35.1-46.3); Red Blood Cell Count 4.07 M/mm3 (4.30-5.90); White Blood Cell Count 5.89 K/mm3 (4.00-11.30)
[2021-05-04 06:14] LABS: C-REACTIVE PROTEIN, EXT RANGE 15.3 mg/dL (0.000-0.300); Calcium, Blood 8.4 mg/dL (8.5-10.1); Creatinine, Blood 1.74 mg/dL (0.60-1.20); Potassium, Blood 4.6 mmol/L (3.5-5.5)
--- NOTE | 2021-05-04 07:27 | NUR ---
MANGA ARTIST SUMMARY PATIENT AWAKE GOOD PART OF THE NIGHT WITH STRONG LOOSE RACKING COUGH PRODUCTIVE OF COPIOUS AMOUNTS OF BROWN SERRANO SPUTUM. WHILE ASLEEP AROUND 2400, 02 SAT DROPPED TO 62% ON 2 LITERS AND PATIENT WAS DIFFICULT TO AWAKEN FOR 2-3 MINUTES. 02 WAS INCREASED TO 6 UNTIL HE DROPPED AGAIN INTO LOW 80'S, THEN 10 LITERS HIGH FLOW NASAL CANULA WITH TUBING IN PATIENTS MOUTH. SATURATION STABILIZED IN MID TO HIGH 90'S AND AT THAT POINT, 02 WAS DECREASED ONCE AGAIN TO 7 LITERS AT END OF THE SHIFT. RT MADE AWARE OF SITUATION AND MADE ABOVE RECOMMENDATIONS. PATIENT ALERT AND ORIENTED. WEAK. BED ALARM SET FOR PATIENT SAFETY
--- NOTE | 2021-05-04 13:18 | NUR ---
The patient was sat at the side of the bed and kicked his legs to increase circulation. He was able to push his legs and pull his legs against resistance. Then he was stood up and walked a few steps. The patient tollerated this activity well and remained on nasal cannula. His pulse ox dropped from 93% to 86%. The patient was fatigued easly and was placed back on the bed. He was able to push and pull against the nurse resistance using his left arm. The patient had hx of injury to the right arm and was only able to press and pull minimal amount. The patient was given a pickle and shown how and when to use it and was taught about deep breathing. The patient gave verbal understanding of all instructions and was able to perform proper use of the pickle. The patient tollerated all activities well and was comfertable sitting up in bed and The patient's pulse ox returned to 93%
[2021-05-04 15:37] LABS: SARS-Cov-2 (COVID-19) PCR, MMC NEGATIVE (NEGATIVE)
--- NOTE | 2021-05-04 18:02 | NUR ---
Shift summary, The patient is A/OX4 TO PERSON, PLACE, TIME AND EVENT. He is [place] and does not have an assistive device present. He has been on nasal cannula throughout the day and has been titrated down from 7lpm to currently 5lpm. His pulse ox reading has trended around 93% but dropps to the mid 80% with activity. The patient c/o cough this afternoon and he was given Cepacol lozengrs and tessalon po per EMR. The patient stated it has helped. We performed some exercise this afternoon and the patient was able to stand and walk a few steps and tolerated well. He was assessed by physical therapy because of injury to his right shoulder. The patient does not have full range of motion and abduction causes pain. the arm was supported with a pillow and the patient was instructed to allow his shoulder to rest. At the moment the patient is sitting in bed watching tv. He was re-informed to call for assistence to use the urinal.
--- NOTE | 2021-05-04 20:00 | NUR ---
PT IS LYING IN HIGH SEMI FOWLERS POSITION IN BED. PT DENIES HEADACHE, CHEST PAIN, NAUSEA, OR NUMBNESS OR TINGLING. PT REPORTS HE IS URINATING WITHOUT DIFFICULTY. PT REPORTS "SOB FOR A LONG TIME." PT'S SATS WNL ON 5.5L O2 VIA NC. CONTINUOUS BIOX ON. PT DENIES ANY REQUESTS AT THIS TIME. PO FLUIDS ON OVERBED TABLE. CALL LIGHT WITHIN REACH. BED IN LOW POSITION. BED ALARM ON FOR PT SAFETY.
--- NOTE | 2021-05-05 01:35 | NUR ---
SPOKE TO DR. CIUFENTES REGARDING + BLOOD CULTURES - REVIEWED PT CURRENTLY ON VIBRAMYCIN AND REMDESIVER. ORDER RECEIVED FOR VANCOMYCIN PHARMACY CONSULT - ORDER PLACED.
[2021-05-05 05:24] LABS: BASOPHILS ABSOLUTE AUTO 0.01 K/mm3 (0.00-0.23); BASOPHILS PERCENT AUTO 0 % (0-2); EOSINOPHILS PERCENT AUTO 0 % (0-6); Hematocrit 33.5 % (37.0-53.0); Hemoglobin 9.8 g/dL (13.5-17.5); IMMATURE GRAN ABSOLUTE AUTO 0.05 K/mm3 (0.00-0.10); IMMATURE GRAN PERCENT AUTO 1 % (0-1); LYMPHOCYTES ABSOLUTE AUTO 0.38 K/mm3 (0.84-5.20); LYMPHOCYTES PERCENT AUTO 4 % (21-46); MONOCYTES ABSOLUTE AUTO 0.32 K/mm3 (0.16-1.47); MONOCYTES PERCENT AUTO 4 % (4-13); Mean Corpuscular HGB 25.4 pg (26.0-34.0); Mean Corpuscular HGB Conc 29.3 g/dL (31.5-36.5); Mean Corpuscular Volume 87 fL (80-100); Mean Platelet Volume 9.7 fL (9.1-12.4); NEUTROPHILS ABSOLUTE AUTO 7.83 K/mm3 (1.96-9.15); NEUTROPHILS PERCENT AUTO 91 % (41-73); Platelet Count 135 K/mm3 (150-400); RDW Coefficient Variation 19.9 % (11.7-14.2); RDW Standard Deviation 63.5 fL (35.1-46.3); Red Blood Cell Count 3.86 M/mm3 (4.30-5.90); White Blood Cell Count 8.59 K/mm3 (4.00-11.30)
[2021-05-05 05:42] LABS: Bun/Creatinine Ratio 22.9 (12.0-20.0); C-REACTIVE PROTEIN, EXT RANGE 10.1 mg/dL (0.000-0.300); Calcium, Blood 8.6 mg/dL (8.5-10.1); Creatinine, Blood 2.1 mg/dL (0.60-1.20); Potassium, Blood 4.4 mmol/L (3.5-5.5)
--- NOTE | 2021-05-05 06:16 | NUR ---
SHIFT SUMMARY - NO ACUTE CHANGES THROUGHOUT THIS SHIFT. PT CONTINUES WITH COARSE LS THROUGHOUT - SATS WNL ON CONTINUOUS BIOX. PT CONTINUES ON 5.5L O2 VIA NC. PT HAS BEEN PLEASANT, AND COOPERATIVE WITH CARE. IV FLUIDS INFUSING TO R] FA IV SITE WITHOUT COMPLICATIONS. FLUIDS AT BEDSIDE. CALL LIGHT WITHIN REACH. BED IN LOW POSITION.
--- NOTE | 2021-05-05 16:00 | NUR ---
PT IS A/OX4, PLEASANT AND COOPERATIVE, THE PT IS UP WITH ASSIST TO THE CHAIR. THE PT WAS UP IN THE CHAIR THIS AFTERNOON. THE PHYSICAL AND OCCUPATIONAL THERAPIST WORKED WITH THE PT. THE PT IS ON 5.5L/MIN O2 SAT'S RANGE 88 TO 93%. PT IS SOB WITH MINIMAL ACTIVITY NON PRODUCTIVE LOOSE COUGH. PT IS ON CONTINUOUS BIOX. CALL LIGHT IN REACH WILL CONTINUE TO MONITOR AND ASSESS FOR CHANGES
--- NOTE | 2021-05-05 18:07 | NUR ---
Patient has not voided today i've offered to assist with urinal he refused.
[2021-05-06 05:39] LABS: BASOPHILS ABSOLUTE AUTO 0.01 K/mm3 (0.00-0.23); BASOPHILS PERCENT AUTO 0 % (0-2); EOSINOPHILS PERCENT AUTO 0 % (0-6); Hematocrit 32.8 % (37.0-53.0); Hemoglobin 9.7 g/dL (13.5-17.5); IMMATURE GRAN PERCENT AUTO 1 % (0-1); LYMPHOCYTES ABSOLUTE AUTO 0.39 K/mm3 (0.84-5.20); LYMPHOCYTES PERCENT AUTO 4 % (21-46); MONOCYTES ABSOLUTE AUTO 0.27 K/mm3 (0.16-1.47); MONOCYTES PERCENT AUTO 3 % (4-13); Mean Corpuscular HGB 25.3 pg (26.0-34.0); Mean Corpuscular HGB Conc 29.6 g/dL (31.5-36.5); Mean Corpuscular Volume 86 fL (80-100); Mean Platelet Volume 9.5 fL (9.1-12.4); NEUTROPHILS ABSOLUTE AUTO 8.53 K/mm3 (1.96-9.15); NEUTROPHILS PERCENT AUTO 92 % (41-73); NRBC ABSOLUTE 0.02 K/mm3 (0.00-0.02); NRBC Auto 0.2 /100 WBC (0.0-0.2); Platelet Count 158 K/mm3 (150-400); RDW Standard Deviation 62.8 fL (35.1-46.3); Red Blood Cell Count 3.83 M/mm3 (4.30-5.90)
[2021-05-06 05:55] LABS: Bun/Creatinine Ratio 26.3 (12.0-20.0); Calcium, Blood 8.2 mg/dL (8.5-10.1); Creatinine, Blood 2.36 mg/dL (0.60-1.20); Potassium, Blood 4.5 mmol/L (3.5-5.5)
--- NOTE | 2021-05-06 06:37 | NUR ---
SHIFT SUMMARY PATIENT ALERT AND ORIENTED. HAD NO COMPLAINTS OF PAIN OR SHORTNESS OF BREATH. NO ACUTE ISSUES NOTED. IV PATENT AND INFUSING. BED IN LOWEST POSITION WITH WHEELS LOCKED AND ALARM ON. CALL LIGHT WITHIN REACH. REPORT GIVEN TO ONCOMING RN.
[2021-05-06 14:24] LABS: SARS-Cov-2 (COVID-19) PCR, MMC NEGATIVE (NEGATIVE)
--- NOTE | 2021-05-06 19:38 | NUR ---
END OF SHIFT SUMMARY: PATIENT REPORTED PAIN IN HIS RIGHT SHOULDER. PATIENT DENIED NEED FOR INTERVENTION, REPORTING THAT IF HE WAS CAREFUL WITH IT, IT DIDN'T HURT. PATIENT CONTINUED TO HAVE COARSE/WHEEZY LUNG SOUNDS. DECREASED PATIENT'S O2 TO 4L. PATIENT MAINTAINED AN SPO2 OF 94-95%. PATIENT DESAT'S WITH MOVEMENT, EATING, AND COUGHING. PATIENT RECOVERS QUICKLY. PATIENT DENIES SHORTNESS OF BREATH AT REST. PATIENT UP WITH PT. PATIENT TOLERATED WELL. PATIENT AGAIN EXPERIENCED A DESATURATION, BUT RECOVERED QUICKLY WITH REST. PATIENT WENT FOR A SHOULDER MRI THIS EVENING. PATIENT TOLERATED WELL.
[2021-05-07 02:15] LABS: BASOPHILS ABSOLUTE AUTO 0.02 K/mm3 (0.00-0.23); BASOPHILS PERCENT AUTO 0 % (0-2); EOSINOPHILS PERCENT AUTO 0 % (0-6); Hematocrit 30.9 % (37.0-53.0); Hemoglobin 9.6 g/dL (13.5-17.5); IMMATURE GRAN ABSOLUTE AUTO 0.16 K/mm3 (0.00-0.10); IMMATURE GRAN PERCENT AUTO 2 % (0-1); LYMPHOCYTES ABSOLUTE AUTO 0.33 K/mm3 (0.84-5.20); LYMPHOCYTES PERCENT AUTO 4 % (21-46); MONOCYTES ABSOLUTE AUTO 0.27 K/mm3 (0.16-1.47); MONOCYTES PERCENT AUTO 3 % (4-13); Mean Corpuscular HGB 25.9 pg (26.0-34.0); Mean Corpuscular HGB Conc 31.1 g/dL (31.5-36.5); Mean Corpuscular Volume 84 fL (80-100); Mean Platelet Volume 9.9 fL (9.1-12.4); NEUTROPHILS ABSOLUTE AUTO 8.76 K/mm3 (1.96-9.15); NEUTROPHILS PERCENT AUTO 92 % (41-73); NRBC ABSOLUTE 0.03 K/mm3 (0.00-0.02); NRBC Auto 0.3 /100 WBC (0.0-0.2); Platelet Count 187 K/mm3 (150-400); RDW Coefficient Variation 20.1 % (11.7-14.2); RDW Standard Deviation 61.2 fL (35.1-46.3); White Blood Cell Count 9.54 K/mm3 (4.00-11.30)
[2021-05-07 02:38] LABS: Alanine Aminotransfer (ALT/SGP 34 U/L (12-78); Albumin, Blood 2.4 g/dL (3.4-5.0); Albumin/Globulin Ratio 0.8 (0.8-1.8); Alk Phos 60 U/L (50-136); Anion Gap 5 mmol/L (6-16); Aspartate Aminotrans (AST/SGOT 31 U/L (12-37); Bilirubin, Total 0.4 mg/dL (0.1-1.0); Blood Urea Nitrogen 74 mg/dL (8-24); Bun/Creatinine Ratio 28.8 (12.0-20.0); CO2, Blood 27 mmol/L (21-32); Calcium, Blood 8.1 mg/dL (8.5-10.1); Chloride, Blood 103 mmol/L (98-108); Creatinine, Blood 2.57 mg/dL (0.60-1.20); Globulin, Blood 3.2 g/dL (2.2-4.0); Glomerular Filtration Rate 24 (60-); Glucose, Blood 168 mg/dL (70-99); Magnesium, Blood 1.8 mg/dL (1.6-2.4); Potassium, Blood 4.8 mmol/L (3.5-5.5); Sodium, Blood 135 mmol/L (136-145); Total Protein, Blood 5.6 g/dL (6.4-8.2)
[2021-05-07 03:04] LABS: Vancomycin, Trough 22.1 ug/mL (5.0-10.0)
--- NOTE | 2021-05-07 06:28 | NUR ---
SHIFT SUMMARY PATIENT ALERT AND ORIENTED. HAD NO COMPLAINTS OF PAIN OR SHORTNESS OF BREATH. NO ACUTE ISSUES NOTED. IV PATENT AND FLUSHED. BED IN LOWEST POSITION WITH WHEELS LOCKED AND ALARM ON. CALL LIGHT WITHIN REACH. REPORT GIVEN TO ONCOMING RN.
--- NOTE | 2021-05-07 19:56 | NUR ---
END OF SHIFT SUMMARY: PATIENT REPORTED FEELING ABOUT THE SAME TODAY. PATIENT DENIED CHANGES TO HIS BREATHING. PATIENT UP TO THE CHAIR FOR LUNCH. PATIENT TOLERATED WELL. PATIENT CONTINUES TO BE STABLE ON 4-4.5L VIA NC WITH SPO2 AT 94-95%. PATIENT CONTINUES TO HAVE SHORTNESS OF BREATH AND SOME DESATURATION WITH ACTIVITY. RESOVLES QUICKLY WITH REST. PATIENT CONTINUES TO HAVE A NON-PRODUCTIVE COUGH.
[2021-05-08 05:37] LABS: Hematocrit 31.2 % (37.0-53.0); Hemoglobin 9.7 g/dL (13.5-17.5)
[2021-05-08 06:26] LABS: Alanine Aminotransfer (ALT/SGP 35 U/L (12-78); Albumin, Blood 2.5 g/dL (3.4-5.0); Albumin/Globulin Ratio 0.8 (0.8-1.8); Alk Phos 60 U/L (50-136); Anion Gap 7 mmol/L (6-16); Aspartate Aminotrans (AST/SGOT 29 U/L (12-37); Bilirubin, Total 0.5 mg/dL (0.1-1.0); Blood Urea Nitrogen 84 mg/dL (8-24); Bun/Creatinine Ratio 29.4 (12.0-20.0); CO2, Blood 27 mmol/L (21-32); Calcium, Blood 8.2 mg/dL (8.5-10.1); Chloride, Blood 102 mmol/L (98-108); Creatinine, Blood 2.86 mg/dL (0.60-1.20); Globulin, Blood 3.2 g/dL (2.2-4.0); Glomerular Filtration Rate 22 (60-); Glucose, Blood 176 mg/dL (70-99); Phosphorus, Blood 4.6 mg/dL (2.5-4.9); Potassium, Blood 4.8 mmol/L (3.5-5.5); Sodium, Blood 136 mmol/L (136-145); Total Protein, Blood 5.7 g/dL (6.4-8.2); Vancomycin, Random 25.2 ug/mL
--- NOTE | 2021-05-08 06:42 | NUR ---
SHIFT SUMMARY NO ACUTE CHANGES THIS SHIFT, NO C/O ANY KIND, SLEPT T/O THE NIGHT, BEDRESTING AT THIS TIME, CALL LIGHT IN REACH, WILL CONT TO MONITOR UNTIL REPORT GIVEN TO DAY RN.
--- NOTE | 2021-05-08 08:58 | NUR ---
Update 05/07/21: Per chart review, pt. is likely to need additional assistance either caregiver in the home with HHC or facility placement. Will continue to monitor patient's progress and discuss care with Dr. Jordan. Plan to touch base with family this afternoon.
--- NOTE | 2021-05-08 15:06 | NUR ---
DISCHARGE PICKUP BY DAUGHTER IN LAW DELANEY CHRISTIANO [phone]. OKAY TO GIVE INFORMATION TO DELANEY, PER PATIENT.
--- NOTE | 2021-05-09 04:06 | NUR ---
SHIFT SUMMARY NO ACUTE CHANGES THIS SHIFT, NO C/O ANY KIND, SLEPT T/O THE NIGHT & AT THIS TIME, CALL LIGHT IN REACH, BED ALARM ACTIVE, WILL CONT TO MONITOR UNTIL REPORT GIVEN TO DAY RN.
[2021-05-09 05:50] LABS: Hematocrit 34.2 % (37.0-53.0); Hemoglobin 10.3 g/dL (13.5-17.5)
[2021-05-09 06:20] LABS: Alanine Aminotransfer (ALT/SGP 35 U/L (12-78); Albumin, Blood 2.7 g/dL (3.4-5.0); Albumin/Globulin Ratio 0.8 (0.8-1.8); Alk Phos 62 U/L (50-136); Anion Gap 9 mmol/L (6-16); Aspartate Aminotrans (AST/SGOT 37 U/L (12-37); Bilirubin, Total 0.5 mg/dL (0.1-1.0); Blood Urea Nitrogen 94 mg/dL (8-24); Bun/Creatinine Ratio 30.3 (12.0-20.0); CO2, Blood 27 mmol/L (21-32); Calcium, Blood 8.5 mg/dL (8.5-10.1); Chloride, Blood 100 mmol/L (98-108); Globulin, Blood 3.4 g/dL (2.2-4.0); Glomerular Filtration Rate 20 (60-); Glucose, Blood 151 mg/dL (70-99); Magnesium, Blood 1.9 mg/dL (1.6-2.4); Phosphorus, Blood 5.6 mg/dL (2.5-4.9); Potassium, Blood 4.8 mmol/L (3.5-5.5); Sodium, Blood 136 mmol/L (136-145); Total Protein, Blood 6.1 g/dL (6.4-8.2); Vancomycin, Random 20.6 ug/mL
--- NOTE | 2021-05-09 18:00 | NUR ---
PATIENT A/OX4, UP WITH FWW AND AND 1 ASSIST. LUNGS COARSE THROUGHOUT, VERY HARSH NON PRODUCTIVE COUGH. 3LO2 VIA NC WHICH IS HIS BASELINE. PT/OT RECOMMENDING HOME HEALTH, BUT PATIENT REFUSING. LIVES WITH FAMILY. POSSIBLE DC TOMORROW.
[2021-05-10 05:50] LABS: Hematocrit 33.9 % (37.0-53.0); Hemoglobin 10.2 g/dL (13.5-17.5)
[2021-05-10 06:22] LABS: Alanine Aminotransfer (ALT/SGP 39 U/L (12-78); Albumin, Blood 2.8 g/dL (3.4-5.0); Albumin/Globulin Ratio 0.9 (0.8-1.8); Alk Phos 58 U/L (50-136); Anion Gap 11 mmol/L (6-16); Aspartate Aminotrans (AST/SGOT 38 U/L (12-37); Bilirubin, Total 0.5 mg/dL (0.1-1.0); Blood Urea Nitrogen 102 mg/dL (8-24); CO2, Blood 24 mmol/L (21-32); Calcium, Blood 8.1 mg/dL (8.5-10.1); Chloride, Blood 100 mmol/L (98-108); Creatinine, Blood 3.29 mg/dL (0.60-1.20); Globulin, Blood 3.2 g/dL (2.2-4.0); Glomerular Filtration Rate 18 (60-); Glucose, Blood 108 mg/dL (70-99); Magnesium, Blood 2.5 mg/dL (1.6-2.4); Potassium, Blood 5.4 mmol/L (3.5-5.5); Sodium, Blood 135 mmol/L (136-145); Vancomycin, Random 18.1 ug/mL
--- NOTE | 2021-05-10 06:41 | NUR ---
SHIFT SUMMARY PATIENT ALERT AND ORIENTED. HAD NO COMPLAINTS OF PAIN OR SHORTNESS OF BREATH. NO ACUTE ISSUES NOTED OVERNIGHT. IV PATENT AND FLUSHED. BED IN LOWEST POSITION WITH WHEELS LOCKED AND ALARM ON. CALL LIGHT WITHIN REACH. REPORT GIVEN TO ONCOMING RN.
--- NOTE | 2021-05-10 18:35 | NUR ---
PT RESTING IN BED MAKING NO COMPLAINTS AT THIS TIME, REMAINS ALERT AND ORIENTED X4 AND 1 ASSIST WITH FFW. BED IN LOW POSITION AND CALL LIGHT WITHIN REACH. STAFF WILL CONTUE TO MONITOR.
[2021-05-11 06:06] LABS: BASOPHILS ABSOLUTE AUTO 0.04 K/mm3 (0.00-0.23); BASOPHILS PERCENT AUTO 0 % (0-2); EOSINOPHILS PERCENT AUTO 0 % (0-6); Hematocrit 32.5 % (37.0-53.0); Hemoglobin 9.9 g/dL (13.5-17.5); IMMATURE GRAN PERCENT AUTO 3 % (0-1); LYMPHOCYTES ABSOLUTE AUTO 0.34 K/mm3 (0.84-5.20); LYMPHOCYTES PERCENT AUTO 2 % (21-46); MONOCYTES ABSOLUTE AUTO 0.69 K/mm3 (0.16-1.47); MONOCYTES PERCENT AUTO 5 % (4-13); Mean Corpuscular HGB 25.6 pg (26.0-34.0); Mean Corpuscular HGB Conc 30.5 g/dL (31.5-36.5); Mean Corpuscular Volume 84 fL (80-100); Mean Platelet Volume 9.2 fL (9.1-12.4); NEUTROPHILS ABSOLUTE AUTO 13.17 K/mm3 (1.96-9.15); NEUTROPHILS PERCENT AUTO 90 % (41-73); NRBC ABSOLUTE 0.12 K/mm3 (0.00-0.02); NRBC Auto 0.8 /100 WBC (0.0-0.2); Platelet Count 278 K/mm3 (150-400); RDW Coefficient Variation 20.9 % (11.7-14.2); RDW Standard Deviation 64.2 fL (35.1-46.3); Red Blood Cell Count 3.86 M/mm3 (4.30-5.90); White Blood Cell Count 14.64 K/mm3 (4.00-11.30)
[2021-05-11 07:04] LABS: Magnesium, Blood 2.4 mg/dL (1.6-2.4)
[2021-05-11 07:05] LABS: Alanine Aminotransfer (ALT/SGP 37 U/L (12-78); Albumin, Blood 2.6 g/dL (3.4-5.0); Albumin/Globulin Ratio 0.9 (0.8-1.8); Alk Phos 57 U/L (50-136); Anion Gap 8 mmol/L (6-16); Aspartate Aminotrans (AST/SGOT 43 U/L (12-37); Bilirubin, Total 0.6 mg/dL (0.1-1.0); Blood Urea Nitrogen 95 mg/dL (8-24); Bun/Creatinine Ratio 31.9 (12.0-20.0); CO2, Blood 26 mmol/L (21-32); Calcium, Blood 8.3 mg/dL (8.5-10.1); Chloride, Blood 102 mmol/L (98-108); Creatinine, Blood 2.98 mg/dL (0.60-1.20); Glomerular Filtration Rate 21 (60-); Glucose, Blood 148 mg/dL (70-99); Phosphorus, Blood 5.8 mg/dL (2.5-4.9); Potassium, Blood 5.2 mmol/L (3.5-5.5); Sodium, Blood 136 mmol/L (136-145); Total Protein, Blood 5.6 g/dL (6.4-8.2); Vancomycin, Random 14.9 ug/mL
--- NOTE | 2021-05-11 07:12 | NUR ---
SHIFT SUMMARY PATIENT ALERT AND ORIENTED. NO COMPLAINTS OF PAIN OR SHORTNESS OF BREATH. MEDICATED PER EMAR FOR COUGH. NO ACUTE ISSUES NOTED. IV PATENT AND FLUSHED. BED IN LOWEST POSITION WITH WHEELS LOCKED AND ALARM ON. CALL LIGHT WITHIN REACH. REPORT GIVEN TO ONCOMING RN.
[2021-05-11 16:45] LABS: SARS-Cov-2 (COVID-19) PCR, MMC NEGATIVE (NEGATIVE)
--- NOTE | 2021-05-11 18:43 | NUR ---
PT IS RESTING IN BED WITH CONT. COURSE CRACKLES AND DYSPNEA ON EXERTION. NO C/O PAIN THIS SHIFT. NO CHANGES NOTED. STAFF WILL CONT TO MONITOR.
--- NOTE | 2021-05-12 05:23 | NUR ---
SHIFT SUMMARY A/O, ABLE TO MAKE NEEDS KNOWN. COOPERATIVE WITH CARE. CALLS AND ANSWERS QUESTIONS APPROPRIATELY. NO C/O PAIN/DISCOMFORT. APPEARED TO REST MUCH OF THE NIGHT. REMAINS ON 4L VIA NC /c SPO2 >90%. REMAINS COVID NEGATIVE. LS REMAIN VERY COARSE. NO ACUTE CHANGES NOTED OVERNIGHT. BED IN LOWEST POSITION. CALL LIGHT AND BELONGINGS WITHIN REACH. CONTINUE WITH CURRENT PLAN OF CARE. REPORT TO ONCOMING RN.
[2021-05-12 06:10] LABS: Hematocrit 31.5 % (37.0-53.0); Hemoglobin 9.4 g/dL (13.5-17.5)
[2021-05-12 06:33] LABS: Albumin, Blood 2.4 g/dL (3.4-5.0); Anion Gap 8 mmol/L (6-16); Blood Urea Nitrogen 96 mg/dL (8-24); Bun/Creatinine Ratio 32.8 (12.0-20.0); CO2, Blood 28 mmol/L (21-32); Calcium, Blood 8.6 mg/dL (8.5-10.1); Chloride, Blood 101 mmol/L (98-108); Creatinine, Blood 2.93 mg/dL (0.60-1.20); Glomerular Filtration Rate 21 (60-); Glucose, Blood 150 mg/dL (70-99); Magnesium, Blood 2.2 mg/dL (1.6-2.4); Phosphorus, Blood 5.4 mg/dL (2.5-4.9); Potassium, Blood 4.6 mmol/L (3.5-5.5); Sodium, Blood 137 mmol/L (136-145)
--- NOTE | 2021-05-12 19:35 | NUR ---
SHIFT SUMMARY: PT A/O X 3. STANDBY ASSIT, PLEASANT AND COOPERATIVE. PT LS RALES T/OUT. WET COUGH. ON 4 LPM VIA NC. PT REPORTS BASELINE IS 3 LPM. NO ACUTE CHANGES THIS SHIFT.
--- NOTE | 2021-05-13 04:03 | NUR ---
HEALTH PROMOTION EDUCATOR SUMMARY AWAKE AT INTERVALS WITH C/O HEARTBURN. TUMS ORDERED EARLIER AND SEEMED TO HELP, BUT NIGHT PROGRESSED, TUMS INEFFECTIVE AND MD ORDERED A GI COCKTAIL. MED JUST GIVEN, AWAITING OUTCOME. HAS BEEN WATCHING TV WHEN AWAKE. O2 AT 4L/MIN PER NC. BREATH SOUNDS RALES WITH WET COUGH. CALL LIGHT IN REACH. WILL CONTINUE TO MONITOR.
[2021-05-13 05:28] LABS: Hematocrit 30.9 % (37.0-53.0); Hemoglobin 9.3 g/dL (13.5-17.5)
[2021-05-13 06:08] LABS: Albumin, Blood 2.4 g/dL (3.4-5.0); Anion Gap 8 mmol/L (6-16); Blood Urea Nitrogen 101 mg/dL (8-24); Bun/Creatinine Ratio 34.4 (12.0-20.0); CO2, Blood 28 mmol/L (21-32); Calcium, Blood 8.3 mg/dL (8.5-10.1); Chloride, Blood 100 mmol/L (98-108); Creatinine, Blood 2.94 mg/dL (0.60-1.20); Glomerular Filtration Rate 21 (60-); Glucose, Blood 145 mg/dL (70-99); Phosphorus, Blood 4.8 mg/dL (2.5-4.9); Potassium, Blood 4.6 mmol/L (3.5-5.5); Sodium, Blood 136 mmol/L (136-145)
[2021-05-13] MEDS ORDERED: DOXY100 PO (15:59)
[2021-05-13] MEDS ORDERED: GUAI600T33 (16:00)
[2021-05-13] MEDS ORDERED: Prednisone20 MG PO (16:03)
--- NOTE | 2021-05-13 17:57 | NUR ---
DC NOTE: PT DISCHARGED HOME TODAY W/HH SERVICES. REVIEWED DC INSTRUCTIONS W/PT. PT VU. PT SON EDER ALSO INSTRUCTED OVER PHONE ABOUT PRESCRIPTION MEDICATIONS. FAXED TO [facility] PER PT REQUEST. PT IV REMOVED WITH NO S/S OF INFECTION. PT SON BROUGHT HIS PORTABLE O2. PT ESCORTED VIA WC TO SON EDER'S POV ON 4 LPM VIA NC PER ORDER. NATIONAL GUARD AND OT ASSISTED PT TO POV W/OUT INCIDENT.
--- NOTE | 2021-05-14 10:19 | NUR ---
Late entry copied from [facility] EMR system from yesterday. Update 05/13/21: Per chart review this am with Dr. Hinkle, pt. appropriate for discharge. Dr. Hinkle has talked with the patient's family and they feel that they are able to provide adequate support for him at home. Declined further assistance. I left a caregiver packet in patients room with lists of caregivers in the area and contact info, resources, and financial assistance info. Discussed briefly with pt. Family to provide transportation. Pt. has home O2. No further needs at this time per family and pt. Scheduled for telehealth hospital F/U with Latoya Adam on 05/15/21 at 3:20. All info regarding appointment included in the packet for family. [facility] team will call to follow-up within 24-48 hours.
== END 2021-05-13 17:56 | disposition home health service (06) | DRG 189 ==
LOC: ER 10:38 → ERHOLD 15:42 → MEDS 15:42
PROVIDERS: Emergency Medicine; Family Medicine; Internal Medicine; Internal Medicine Nephrology; Physician Assistant; ADMIT Family Medicine
PROC: 8E0ZXY6 Isolation (ICD-10-PCS; principal; 2021-05-03)
PROC: XW033E5 Introduction of Remdesivir Anti-infective into Peripheral Vein, Percutaneous Approach, New Technology Group 5 (ICD-10-PCS; 2021-05-03)
DX: J96.21 Acute and chronic respiratory failure with hypoxia (principal); I13.0 Hypertensive heart and chronic kidney disease with heart failure and stage 1 through stage 4 chronic kidney disease, or unspecified chronic kidney disease; N25.81 Secondary hyperparathyroidism of renal origin; Z66 Do not resuscitate; E87.1 Hypo-osmolality and hyponatremia; N17.9 Acute kidney failure, unspecified; R78.81 Bacteremia; I50.30 Unspecified diastolic (congestive) heart failure; I48.19 Other persistent atrial fibrillation; J44.1 Chronic obstructive pulmonary disease with (acute) exacerbation; Z20.822 Contact with and (suspected) exposure to COVID-19; E88.09 Other disorders of plasma-protein metabolism, not elsewhere classified; S80.02XA Contusion of left knee, initial encounter; E87.5 Hyperkalemia; M75.101 Unspecified rotator cuff tear or rupture of right shoulder, not specified as traumatic; B95.7 Other staphylococcus as the cause of diseases classified elsewhere; N18.30 Chronic kidney disease, stage 3 unspecified; I25.10 Atherosclerotic heart disease of native coronary artery without angina pectoris; I48.91 Unspecified atrial fibrillation; E78.5 Hyperlipidemia, unspecified; K21.9 Gastro-esophageal reflux disease without esophagitis; N40.0 Benign prostatic hyperplasia without lower urinary tract symptoms; D63.1 Anemia in chronic kidney disease; Z99.81 Dependence on supplemental oxygen; I25.2 Old myocardial infarction; Z95.1 Presence of aortocoronary bypass graft; Z98.890 Other specified postprocedural states; Z88.8 Allergy status to other drugs, medicaments and biological substances; Z88.1 Allergy status to other antibiotic agents; Z79.899 Other long term (current) drug therapy; Z79.82 Long term (current) use of aspirin; Z79.01 Long term (current) use of anticoagulants; Z87.891 Personal history of nicotine dependence; W19.XXXA Unspecified fall, initial encounter
CPT/HCPCS: 36415; 71045; 73030; 73221; 73562-LT; 76770; 80048; 80053; 80069; 80202; 82728; 83605; 83735; 83880; 84100; 84145; 84484; 85014; 85018; 85025; 85379; 85651; 86140; 87040; 93005; 93010; 93306; 94640; 94664; 94667; 94668; 94760; 94762; 96365; 96366; 97110; 97116; 97161; 97165; 97530; 97535; 99285-25; A9270; J0696; J0881; J1940; J2920; J2930; J3370; J7050; U0004

== ENCOUNTER 2021-05-24 16:33 | Inpatient (IN) | payer OTHER, MEDICARE ==
[~2021-05-24] VITALS: Ht 177.8 cm; Wt 113.4 kg
[~2021-05-24 16:33] MED LIST changes: +ALBU3IS INH; +AMIODARONE HCL200 M1 PO; +ASCO500 PO; +ATORVASTATIN CA80 M1 PO; +BREO ELLIPTA 11 EAC1 INH; +Breo Ellipta 200-25 INH; +DOXY100 PO; +ELIQUIS5 M2 PO; +FLOMAX0.4 MG PO; +FUROSEMIDE40 MG PO; +GUAI600T33; +KLOR-CON 1010 ME1 PO; +POTA10T PO; +Prednisone20 MG PO; +Vitamin B-121000 MCG PO
[2021-05-24 16:59] LABS: BASOPHILS PERCENT AUTO 0 % (0-2); EOSINOPHILS ABSOLUTE AUTO 0.05 K/mm3 (0.00-0.68); EOSINOPHILS PERCENT AUTO 1 % (0-6); Hematocrit 27.8 % (37.0-53.0); Hemoglobin 8.3 g/dL (13.5-17.5); IMMATURE GRAN ABSOLUTE AUTO 0.05 K/mm3 (0.00-0.10); IMMATURE GRAN PERCENT AUTO 1 % (0-1); LYMPHOCYTES ABSOLUTE AUTO 1.26 K/mm3 (0.84-5.20); LYMPHOCYTES PERCENT AUTO 18 % (21-46); MONOCYTES PERCENT AUTO 6 % (4-13); Mean Corpuscular HGB 26.1 pg (26.0-34.0); Mean Corpuscular HGB Conc 29.9 g/dL (31.5-36.5); Mean Corpuscular Volume 87 fL (80-100); Mean Platelet Volume 9.5 fL (9.1-12.4); NEUTROPHILS ABSOLUTE AUTO 5.33 K/mm3 (1.96-9.15); NEUTROPHILS PERCENT AUTO 75 % (41-73); Platelet Count 142 K/mm3 (150-400); RDW Coefficient Variation 19.3 % (11.7-14.2); RDW Standard Deviation 61.1 fL (35.1-46.3); Red Blood Cell Count 3.18 M/mm3 (4.30-5.90); White Blood Cell Count 7.09 K/mm3 (4.00-11.30)
[2021-05-24 17:13] LABS: Alanine Aminotransfer (ALT/SGP 27 U/L (12-78); Albumin/Globulin Ratio 0.6 (0.8-1.8); Alk Phos 58 U/L (50-136); Anion Gap 5 mmol/L (6-16); Aspartate Aminotrans (AST/SGOT 26 U/L (12-37); Bilirubin, Total 0.8 mg/dL (0.1-1.0); Blood Urea Nitrogen 51 mg/dL (8-24); Bun/Creatinine Ratio 18.8 (12.0-20.0); CO2, Blood 32 mmol/L (21-32); Calcium, Blood 8.3 mg/dL (8.5-10.1); Chloride, Blood 106 mmol/L (98-108); Creatinine, Blood 2.72 mg/dL (0.60-1.20); Ethanol (Alcohol), Blood, Med <3 mg/dL; Globulin, Blood 3.4 g/dL (2.2-4.0); Glomerular Filtration Rate 23 (60-); Glucose, Blood 90 mg/dL (70-99); Potassium, Blood 4.2 mmol/L (3.5-5.5); Sodium, Blood 143 mmol/L (136-145); Total Protein, Blood 5.4 g/dL (6.4-8.2)
[2021-05-24] MEDS ORDERED: AMOCLA875 PO (18:30)
[2021-05-24] MEDS ORDERED: AZIT250 PO (18:30)
[2021-05-24 18:38] LABS: SARS-Cov-2 (COVID-19) PCR, MMC NEGATIVE (NEGATIVE)
[2021-05-24 22:24] LABS: International Normalized Ratio 1.18; Prothrombin Time Results 12.6 Sec (9.7-11.5)
--- NOTE | 2021-05-25 03:52 | NUR ---
ASSUMPTION OF CARE PT ARRIVED AT 0030 ON MEDICAL UNIT, SLID FROM ER GURNEY TO MEDICAL BED WITH HELP OF SLIDE SHEET AND THREE STAFF MEMBERS. PT IS ON 3-4LPM VIA NC TO MAINTAIN SATS ABOVE 90%. SEIZURE PADS IN PLACE DUE TO PT HAD TWO WITNESSED FIRST TIME SEIZURES TODAY, PRIOR TO HOSPITAL ADMISSION. PT WITH COARSE RALES AND WHEEZING AUSCULTATED THROUGH OUT LUNGS. SKIN TEARS TO UPPER EXTREMITIES, AND PRESSURE ULCER STAGE 1 NOTED TO LEFT BUTTOCK. SEE PICTURES IN PT CHART. RN CLEANSED WOUND WITH DERMAL WOUND CLEANSER AND APPLIED A FOAM MEPILEX SACCRAL DRESSING. IV ACCESS IN RFA AND LFA, INFUSING NORMAL SALINE. PT IS A&0 2-3; BASELINE CONFUSION. CALL LIGHT IN PLACE, BED ALARM SET, BED IN LOWEST POSITION. WILL CONTINUE TO MONITOR.
[2021-05-25 06:19] LABS: BASOPHILS ABSOLUTE AUTO 0.01 K/mm3 (0.00-0.23); BASOPHILS PERCENT AUTO 0 % (0-2); EOSINOPHILS ABSOLUTE AUTO 0.04 K/mm3 (0.00-0.68); EOSINOPHILS PERCENT AUTO 1 % (0-6); Hematocrit 24.3 % (37.0-53.0); Hemoglobin 7.1 g/dL (13.5-17.5); IMMATURE GRAN ABSOLUTE AUTO 0.02 K/mm3 (0.00-0.10); IMMATURE GRAN PERCENT AUTO 0 % (0-1); LYMPHOCYTES ABSOLUTE AUTO 0.96 K/mm3 (0.84-5.20); LYMPHOCYTES PERCENT AUTO 18 % (21-46); MONOCYTES ABSOLUTE AUTO 0.31 K/mm3 (0.16-1.47); MONOCYTES PERCENT AUTO 6 % (4-13); Mean Corpuscular HGB 26.1 pg (26.0-34.0); Mean Corpuscular HGB Conc 29.2 g/dL (31.5-36.5); Mean Corpuscular Volume 89 fL (80-100); Mean Platelet Volume 9.9 fL (9.1-12.4); NEUTROPHILS ABSOLUTE AUTO 3.96 K/mm3 (1.96-9.15); NEUTROPHILS PERCENT AUTO 75 % (41-73); Platelet Count 115 K/mm3 (150-400); RDW Coefficient Variation 19.3 % (11.7-14.2); RDW Standard Deviation 61.9 fL (35.1-46.3); Red Blood Cell Count 2.72 M/mm3 (4.30-5.90)
--- NOTE | 2021-05-25 06:40 | NUR ---
SHIFT SUMMARY BLADDER SCAN SHOWED 345ML. OBTAINED ORDER FOR STRAIGHT CATH NOW, REPEAT BLADDER SCAN IN 6 HRS. OFFERED PT TO USE THE URINAL AGAIN, THIS TIME PT AGREED, VOIDED 400ML. PT IS EAGERLY ANTICIPATING DISCHARGE. NO ACUTE CHANGES, VS STABLE. TELE READING SINUS IN THE 70'S. BED IN LOWEST POSITION, CALL LIGHT WITHIN REACH.
[2021-05-25 06:42] LABS: Albumin, Blood 1.8 g/dL (3.4-5.0); Albumin/Globulin Ratio 0.6 (0.8-1.8); Bilirubin, Total 0.6 mg/dL (0.1-1.0); Bun/Creatinine Ratio 18.2 (12.0-20.0); Calcium, Blood 7.1 mg/dL (8.5-10.1); Creatinine, Blood 2.64 mg/dL (0.60-1.20); Globulin, Blood 2.9 g/dL (2.2-4.0); Potassium, Blood 4.1 mmol/L (3.5-5.5); Total Protein, Blood 4.7 g/dL (6.4-8.2)
[2021-05-25 11:45] LABS: Appearance, Urine Clear (Clear); Bilirubin, Urine Neg (Neg); Blood, Urine Neg (Neg); Color, Urine Yellow (P-Yellow); Glucose Qualitative, Urine Neg (Neg); Ketones, Urine 1+ (Neg); Leukocyte Esterase, Urine Neg (Neg); Nitrite, Urine Neg (Neg); Protein, Urine Neg (Neg); Source, Urine Clean Catch; Urobilinogen, Urine NORM (Normal)
[2021-05-25 11:58] LABS: U Amphetamine Screen Not Detected; U Barbituate Screen Not Detected; U Benzodiazapine Screen Not Detected; U Buprenorphine Screen Not Detected; U Cannabinoids Screen Not Detected; U Cocaine Screen Not Detected; U Methadone Screen Not Detected; U Methamphetamine Screen Not Detected; U Opiates Screen Not Detected; U Oxycodone Screen Not Detected; U Phencyclidine Screen Not Detected; U Propoxyphene Screen Not Detected
[2021-05-25 15:59] LABS: Specific Gravity, Urine 1.015 (1.003-1.022)
--- NOTE | 2021-05-25 18:53 | NUR ---
SHIFT SUMMARY THE PATIENT IS ALERT AND ORIENTED X2 SOMETIMES 3. THE PATIENT WORKED WITH PHYSICAL THERAPY TODAY. THEY ARE STILL CURRENTLY ON 3 LITERS. THE PATIENT HAS RECEIVED TWO ROUNDS OF ANTIBIOTICS THIS SHIFT. THE PATIENT IS SLEEPING IN BED CURRENTLY, VITAL SIGNS STABLE.
[2021-05-26 05:35] LABS: Bun/Creatinine Ratio 17.9 (12.0-20.0); Calcium, Blood 7.4 mg/dL (8.5-10.1); Creatinine, Blood 2.35 mg/dL (0.60-1.20); Potassium, Blood 3.8 mmol/L (3.5-5.5)
--- NOTE | 2021-05-26 07:54 | NUR ---
SHIFT SUMMARY VSS. PT WILL CALL FOR WATER AND RE-POSITIONING. EDEMA TO BILAT UPPER AND LOWER EXTREMITIES. A&0 X 2. BASELINE CONFUSION. 3LPM O2 VIA NC. BED IN LOWEST POSITION, CALL LIGHT WITHIN REACH. NO ACUTE CHANGES.
--- NOTE | 2021-05-26 20:14 | NUR ---
END OF SHIFT SUMMARY: PATIENT DENIED PAIN OR DISCOMFORT THROUGHOUT THE SHIFT. PATIENT HAS A MINIMAL APPETITIE. PATIENT WORKED WITH PT TODAY TO SIT AT THE SIDE OF THE BED. PATIENT DOES NOT EXPRESS MOTIVATION TO INCREASE ACTIVITY. PATIENT'S LUNG SOUNDS BECAME MORE COARSE THROUGHOUT THE SHIFT AND HE DEVELOPED A WET COUGH. DISCUSSED WITH MD (SEE NURSES NOTE). PATIENT DENIED SOB OR DIFFICULTY BREATHING THROUGHOUT THE SHIFT. ABLE TO SPEAK WITH DAUGHTER PABLO AND PROVIDE HER WITH AN UPDATE. SHE REPORTED THAT SHE WILL SPEAK WITH HER SIBLINGS TO DISCUSS PLAN OF CARE AND SUPPORT FOR DISCHARGE.
--- NOTE | 2021-05-26 20:15 | NUR ---
WET COUGH: LATE ENTRY: 1929: SPOKE WITH DR. LAZARO ABOUT THE PATIENT'S LUNG SOUNDS AND WET COUGH. IN ROOM TO ASSESS PATIENT. NEW ORDERS RECEIVED AND ENTERED. PATIENT CONTINUES TO DENY SOB. PATIENT APPEARS COMFORTABLE AT REST.
--- NOTE | 2021-05-27 05:09 | NUR ---
SHIFT SUMMARY THIS PT IS A FULL CODE ADMITTED FOR SEIZURES. THE PLAN FOR THIS PT IS TO CONTROL SEIZURES. VS STABLE AT THIS TIME.
[2021-05-27 05:13] LABS: BASOPHILS ABSOLUTE AUTO 0.01 K/mm3 (0.00-0.23); BASOPHILS PERCENT AUTO 0 % (0-2); EOSINOPHILS ABSOLUTE AUTO 0.06 K/mm3 (0.00-0.68); EOSINOPHILS PERCENT AUTO 2 % (0-6); Hematocrit 23.7 % (37.0-53.0); Hemoglobin 7.1 g/dL (13.5-17.5); IMMATURE GRAN ABSOLUTE AUTO 0.02 K/mm3 (0.00-0.10); IMMATURE GRAN PERCENT AUTO 1 % (0-1); LYMPHOCYTES ABSOLUTE AUTO 0.86 K/mm3 (0.84-5.20); LYMPHOCYTES PERCENT AUTO 24 % (21-46); MONOCYTES ABSOLUTE AUTO 0.24 K/mm3 (0.16-1.47); MONOCYTES PERCENT AUTO 7 % (4-13); Mean Corpuscular HGB 26.3 pg (26.0-34.0); Mean Corpuscular Volume 88 fL (80-100); Mean Platelet Volume 9.8 fL (9.1-12.4); NEUTROPHILS ABSOLUTE AUTO 2.41 K/mm3 (1.96-9.15); NEUTROPHILS PERCENT AUTO 67 % (41-73); Platelet Count 112 K/mm3 (150-400); RDW Coefficient Variation 18.8 % (11.7-14.2); RDW Standard Deviation 59.4 fL (35.1-46.3)
[2021-05-27 05:46] LABS: Bun/Creatinine Ratio 17.9 (12.0-20.0); Calcium, Blood 7.4 mg/dL (8.5-10.1); Creatinine, Blood 2.24 mg/dL (0.60-1.20); Potassium, Blood 3.6 mmol/L (3.5-5.5)
--- NOTE | 2021-05-27 13:23 | NUR ---
HOSPICE DISCHARGE: PATIENT REPORTED TO RN THIS MORNING THAT HE WOULD LIKE TO GO HOME AND BE COMFORTABLE. CLARIFIED THAT THE PATIENT WOULD LIKE TO GO HOME, BE COMFORTABLE AND PASS WHEN IT WAS HIS TIME, EVEN IF THAT IS SOON. PATIENT AGREED. NOTIFIED. DR. CASTLE AND CLARICE QUEEN. YOAVPRASAD PRESS SERVICE READER IS INVOLVED IN COORDINATING THIS DISCHARGE FOR THE PATIENT.
--- NOTE | 2021-05-27 16:27 | NUR ---
ADMIT: 05/24/21 DISCHARGE: DX: seizure CC: [email or web address] MARTELL CALL: RESIDENCE: home CAREGIVER: Trish Vazquez, Child, Marlin Velazquez, Child, Aylin Gagnon, Child, DX: CP, Acute on chronic respiratory failure, Afib, HTN, CKD-stage 3, see list DME: O2 and equipment, nebulizer with mouthpiece, CCM: none HOME HEALTH:[facility] - 2018; [facility] -2016 SUMMARY: 05/27/21- Savanna with Palliative care came in to state that pt is wanting to go home on hospice. Pt is saying that he "wants to go home and ." She is going to go and see pt and then talk with son because PT is recommending that he got to SNF or home with inspector timers caregivers. Once hear back from Savanna will proceed forward with decided upon discharge plan. Spoke with Jose in Palliative care, he is going to call the family to discuss pt going on hospice, what to expect with hospice and try to see which agency they would like to go with. -leticia
--- NOTE | 2021-05-27 17:02 | NUR ---
Palliative Care Consult for Medically Fragile and End Stage Disease. 75 year old male admitted to the hospital for Seizure. Pt's medical history and comorbidities include: COPD on home O2, Diastolic CHF, CAD, Afib, CKD 3/4, Hyperlipidemia, Dementia, Condussion, falls, and Hyponatremia. Review chart and attempted to visit with Pt. At the time of this RN's initial visit Pt is struggling with keeping his eyes opened. Pt is able to confirm his wishes to go home and focus on comofrt. He states "It's time" then closes his eyes again. Ended visit to allow Pt to rest. Second attempt to visit with Pt and is currently on telephone. Called and spoke with Pt's children on separate occasions. Son Aylin and daughter Trish confirm being in agreement with hospice. Educated on hospice philosophy with V/U made by children. Pt will live with son in [place]. Family confirms ability to care for Pt. Discussed hospice agencies to choose from with family requesting agency that is available the soonest. Called [facility] and [facility]. [facility] is available Wednesday at the earliest, [facility] is available tomorrow. Confirmed with daughter and family will go with [facility]. Called and spoke with [facility] Kaley Presley and discussed case. Spoke with [place] D/[facility] Trauma Registrar [facility] and discussed case. Spoke with Pt's primary RN Amy. Pt requires significant assistance with transfers and is not ambulating. Pt requires assistance with bathing and dressing. Pt does experience occasional incontinence and requires assistance with urinal. Pt's appettite is poor. Pt has presure Ulcer on buttocks. PPS 40% ADLs 5/6 Pt high risk for readmission. Plan for Pt to D/C home with [facility]. Family and Pt would like D/C as soon as possible. Palliative Care will remain available.
--- NOTE | 2021-05-27 20:07 | NUR ---
END OF SHIFT SUMMARY: PATIENT DENIED PAIN OR DISCOMFORT THROUGHOUT THE SHIFT. PATIENT WORKED WITH PT AND OT. PATIENT UP TO THE CHAIR TODAY. PATIENT APPEARS COMFORTABLE ALL THE TIME. PATIENT REPORTED TO RN THAT HE IS IMPATIENT TO DISCHARGE HOME. SEE NURSES NOTE. PATIENT IS GETTING SET UP TO DISCHARGE ON HOSPICE. FAMILY IS INVOLVED AND SUPPORTIVE. PATIENT CONTINUES TO HAVE A POOR APPETITE. HE REPORTS THIS IS BECAUSE HE DOES NOT LIKE THE HOSPITAL FOOD. PATIENT'S BREATH SOUNDS CONTINUE TO SOUND WET. PATIENT CONTINUES TO DENY SHORTNESS OF BREATH OR DIFFICULTY BREATHING.
--- NOTE | 2021-05-28 06:08 | NUR ---
SHIFT SUMMARY PT IS A 75 Y/O MALE, ADMITTED FOR SEIZURES. HE IS A&O X 3, ANXIOUS AND FORGETFUL AT TIMES. BEDREST, 2P MAX OUT OF BED. NO C/O ACUTE PAIN, NAUSEA OR SOB. PT ON 3L O2 VIA NC, VITAL SIGNS STABLE. NO ACUTE CHANGES IN PT CONDITION NOTED DURING THE NIGHT. WILL CONTINUE TO MONITOR AND TREAT PER EMAR UNTIL HAND OFF TO DAY SHIFT RN.
--- NOTE | 2021-05-28 15:16 | NUR ---
05/28/21- Daughter Trish called and was saying that she was supposed to get update from hospice company. Told daughter that I have hospice orders signed by my doctor today and they were given to hospice company. Will reach out to liaison officer and ask her to call the daughter. Plan is to d/c pt home on hospice tomorrow morning. -jacqui
--- NOTE | 2021-05-28 16:49 | NUR ---
PT IS ABLE TO MAKE NEEDS KNONW. PT WILL BE DISCHARGED WITH HOSPICE 05/29/21. [facility] WILL PICKUP AT 10:30AM TO TRANSFER HIM HOME. PT HAS BEEN SLEEPING FOR MOST OF SHIFT. WILL WAKE UP TO RECEIVE CARE. WILL CONTINUE TO MONITOR AND GIVE CARE UNTIL SHIFT CHANGE.
--- NOTE | 2021-05-29 06:26 | NUR ---
SHIFT SUMMARY pATIENT IS ALERT AND ORIENTED X 3. ON 3lnc. NO COMPLAINTS OF CHEST PAIN. PATIENT RESTING COMFORTABLY. POSITIONED PATIENT FOR COMFORT. NOT COMPLAINTS OF DISTRESS. mEDICATED FOR BACK PAIN. pLAN FOR PATIENT TO BE DICHARGED WITH HOSPICE. aLL CARES AND MEDICATIONS COMPLETED ORDERED ACCORDING TO NURSING JUDGEMENT. ALL UNFINISHED CARES ENDORSED TO ONCOMING RN.
--- NOTE | 2021-05-29 10:05 | NUR ---
Pt resting in bed with his eyes closed upon arrival. Pt opens his eyes to gentle verbal stimuli. Pt appears comfortable with no S/S of distress at this time. Pt in agreement to D/C home this AM with hospice. Spoke with Primary RN Osvaldo and discussed case. No concerns reported at this time. Palliative Care will remain available.
--- NOTE | 2021-05-29 11:03 | NUR ---
05/29/21- Received notification from [facility] that the pt would be d/c home today. Daughter Will be coming to take him home. Prescriptions will be sent to [facility] in [place] and picked up by daughter Trish. -leticia
--- NOTE | 2021-05-29 11:45 | NUR ---
PATIENT DISCHARGE: PATIENT DISCHARGED TO HOME WITH HOSPICE THIS SHIFT. MEDICATION RECONCILIATION COMPLETED; MED LIST FAXED TO [facility]. DISCHARGE EDUCATION COMPLETED WITH PATIENT. PATIENT TRANSPORTED TO EXIT BY [facility] STAFF WITH WHEELCHAIR AT 1120. PATIENT DEPARTED [facility] VIA PRIVATE AUTO.
== END 2021-05-29 11:20 | disposition hospice, home (50) | DRG 100 ==
LOC: ER 16:33 → MEDS 16:34 → ER 21:27 → MEDS 05-25 00:29 → ENPENDDIS 05-28 18:14 → MEDS 05-29 11:20
PROVIDERS: Internal Medicine; Student in an Organized Health Care Education/Training Program; ADMIT Internal Medicine
DX: R56.9 Unspecified convulsions (principal); J96.21 Acute and chronic respiratory failure with hypoxia; J18.9 Pneumonia, unspecified organism; I50.32 Chronic diastolic (congestive) heart failure; J44.0 Chronic obstructive pulmonary disease with (acute) lower respiratory infection; J44.1 Chronic obstructive pulmonary disease with (acute) exacerbation; N18.4 Chronic kidney disease, stage 4 (severe); I25.10 Atherosclerotic heart disease of native coronary artery without angina pectoris; Z20.822 Contact with and (suspected) exposure to COVID-19; Z66 Do not resuscitate; I48.91 Unspecified atrial fibrillation; E78.5 Hyperlipidemia, unspecified; E11.22 Type 2 diabetes mellitus with diabetic chronic kidney disease; D63.1 Anemia in chronic kidney disease; S01.81XA Laceration without foreign body of other part of head, initial encounter; M19.90 Unspecified osteoarthritis, unspecified site; I95.9 Hypotension, unspecified; N40.0 Benign prostatic hyperplasia without lower urinary tract symptoms; S51.012A Laceration without foreign body of left elbow, initial encounter; S61.412A Laceration without foreign body of left hand, initial encounter; F03.90 Unspecified dementia, unspecified severity, without behavioral disturbance, psychotic disturbance, mood disturbance, and anxiety; K21.9 Gastro-esophageal reflux disease without esophagitis; Z85.46 Personal history of malignant neoplasm of prostate; I25.2 Old myocardial infarction; Z99.81 Dependence on supplemental oxygen; Z95.1 Presence of aortocoronary bypass graft; Z98.890 Other specified postprocedural states; Z87.891 Personal history of nicotine dependence; Z88.1 Allergy status to other antibiotic agents; Z88.8 Allergy status to other drugs, medicaments and biological substances; Z79.01 Long term (current) use of anticoagulants; Z79.82 Long term (current) use of aspirin; Z79.899 Other long term (current) drug therapy; W01.198A Fall on same level from slipping, tripping and stumbling with subsequent striking against other object, initial encounter
CPT/HCPCS: 36415; 70450; 71045; 72125; 72170; 80048; 80053; 81003; 83605; 83690; 83880; 84145; 85025; 85610; 86850; 86900; 86901; 87040; 93005; 93010; 94640; 94664; 94667; 94760; 94762; 96372; 96374; 96375; 97110; 97162; 97166; 97530; 99285-25; A9270; G0378; G0480; J0456; J0696; J1650; J1940; J1953; J7030; J7050; U0004